=== PATIENT | male | born 1960 | race Caucasian/White ===

== ENCOUNTER → 2019-01-05 10:23 | Outpatient (CLI) | payer OTHER, SELFPAY ==
--- NOTE | 2019-01-05 10:30 | RAD_ITS ---
STUDY: X-RAY - LEFT ANKLE REASON FOR EXAM: Male, 58 years old. Increased pain. TECHNIQUE: 3 view(s) of the ankle. COMPARISON: None. FINDINGS: Normal visualized distal tibia. There is mild deformity of the tip of the distal fibula with well-corticated lucency of the tip of the lateral malleolus which may indicate sequela of an old fracture with incomplete healing. Otherwise normal medial and lateral malleoli. Normal tibiotalar articulation and ankle mortise. Normal visualized talus and calcaneus. The visualized subtalar, talonavicular, calcaneocuboid and tarsal articulations are normal. There is mild soft tissue swelling surrounding the ankle and over the lateral malleolus. RAD/Ankle min 3 Views IMPRESSION: Questionable sequela of old fracture with incomplete healing of the tip of the lateral malleolus. Correlation with the previous exam and history recommended. Remainder of the exam within normal limits. Electronically Signed: Jessika Monroy MD at 1:08 EST , Service support ,
== END ==
PROVIDERS: Family Provider Family Medicine; PCP Family Medicine; Referring Provider Family Medicine; Visit Provider Family Medicine
DX: M25.572 Pain in left ankle and joints of left foot (principal)
CPT/HCPCS: 73610

== ENCOUNTER → 2020-03-24 08:16 | Outpatient (CLI) | payer OTHER, SELFPAY ==
[2020-03-24 09:14] LABS: Cholesterol 165 mg/dL (200); Glucose 99 mg/dL (74-106); High Density Lipoprotein 36 mg/dL; Triglycerides 115 mg/dL; Very Low Density Lipoprotein 23 mg/dL (5-40)
== END ==
PROVIDERS: PCP Family Medicine; Visit Provider Family Medicine
DX: Z13.220 Encounter for screening for lipoid disorders (principal); Z13.1 Encounter for screening for diabetes mellitus; Z12.5 Encounter for screening for malignant neoplasm of prostate
CPT/HCPCS: 36415; 80061; 82947; 84153; G0103

== ENCOUNTER → 2022-10-08 | Outpatient (CLI) | payer OTHER, SELFPAY ==
--- NOTE | 2022-10-08 10:05 | RAD_ITS ---
INDICATION: hand pain EXAMINATION/TECHNIQUE: X-RAY - LEFT XR Hand Min 3 Views 3 VIEWS COMPARISON: December 01, 2016 finger x-rays. FINDINGS: SOFT TISSUES: No soft tissue swelling or gas. No radiopaque foreign body. BONES/JOINTS: No acute fracture or traumatic malalignment. There is severe degenerative changes involving the second and fifth distal interphalangeal joints with pencil in cup type deformity suggesting possible inflammatory arthritis; consider psoriatic and erosive osteoarthritis. This is increased compared to prior exam. Less severe joint space loss and subchondral sclerosis involving the third and fourth distal interphalangeal joints. There is mild to moderate joint space loss involving the proximal interphalangeal joints, fingers 1 through 5. There is moderate degenerative changes of the first metacarpal phalangeal joint. Other interphalangeal joints show normal joint spacing and alignment. Periarticular erosion suggested at the base of the proximal phalanx, fifth finger. RAD/Hand Min 3 Views IMPRESSION: Advanced arthritic changes as described above with findings suggesting possible inflammatory arthritis favoring psoriatic or less likely erosive osteoarthritis. Noninflammatory (osteoarthritic) process is not excluded. Electronically Signed: Gustavo Cerda DO at 0:02 EDT ,
[2022-10-08 12:33] LABS: Absolute Lymphocyte Count 1.57 X10^3/uL (0.83-4.51); Absolute Neutrophil Count 2.4 X10^3/uL (2.0-7.7); Basophil# 0.06 X10^3/uL; Basophil% 1.2 % (0-1); Eosinophil# 0.13 X10^3/uL; Eosinophils% 2.7 % (0-5); Hematocrit 40.7 % (40-54); Lymphocyte # 1.57 X10^3/ul (0.83-4.51); Lymphocyte % 32.2 % (19-41); Mean Corp Hgb Conc 34.4 g/dL (32-36); Mean Corpuscular Hgb 31.7 pg (27.0-32.0); Mean Corpuscular Volume 92.1 fL (80-94); Mean Platelet Vol. 10.1 fl (6.2-12.0); Monocyte# 0.65 X10^3/uL; Monocyte% 13.3 % (0-10); NRBC Flagged by Analyzer 0 % (0-5); Neutrophil # 2.44 X10^3/uL (2.7-7.7); Neutrophil % 50.2 % (47-70); Platelet Count 253 K/mm3 (150-450); RBC Distribution Width CV 12.6 % (11.6-14.6); RBC Distribution Width SD 42.7 fl (35.1-43.9); Red Blood Count 4.42 M/mm3 (4.6-6.2); White Blood Count 4.9 K/mm3 (4.4-11.0)
[2022-10-08 12:41] LABS: ALB/GLOB Ratio 1.2 RATIO (0.9-2.4); AST(SGOT) 26 U/L (15-37); Alanine Aminotransfer ALT/SGPT 36 U/L (16-61); Albumin, Serum 3.9 g/dL (3.2-5.0); Alkaline Phosphatase 83 U/L (45-117); Anion Gap 5 (5-15); BUN 13 mg/dL (7-18); BUN/Creat Ratio 15.2 RATIO (10-20); Calcium,Total 8.9 mg/dL (8.5-10.1); Chloride 100 mmol/L (98-107); Cholesterol 191 mg/dL (200); Creatinine, Serum 0.86 mg/dL (0.70-1.30); EST Glomerular Filtration Rate 96 mL/min (>60); Est Glom Filt Rate - Afr Amer 116 mL/min (>60); Globulin 3.3 g/dL (2.2-4.2); Glucose 90 mg/dL (74-106); High Density Lipoprotein 50 mg/dL; Potassium 4.2 mmol/L (3.5-5.1); Protein, Total 7.2 g/dL (6.4-8.2); Rheumatoid Factor < 10.0 IU/mL (<15); Sodium Level 134 mmol/L (136-145); Triglycerides 38 mg/dL; Very Low Density Lipoprotein 8 mg/dL (5-40)
== END | disposition home or self-care (01) ==
PROVIDERS: PCP Family Medicine; Referring Provider Family Medicine; Visit Provider Family Medicine
DX: Z00.00 Encounter for general adult medical examination without abnormal findings (principal); Z13.220 Encounter for screening for lipoid disorders; Z13.1 Encounter for screening for diabetes mellitus; M25.549 Pain in joints of unspecified hand
CPT/HCPCS: 36415; 73130; 80053; 80061; 84153; 85025; 86431; G0103

== ENCOUNTER → 2022-10-20 | Outpatient (CLI) | payer OTHER, SELFPAY ==
--- NOTE | 2022-10-20 13:22 | PFT ---
INTRODUCTION: The patient is a 61-year-old male who presents for pulmonary function studies secondary to a diagnosis of shortness of breath. Respiratory therapy reported good patient effort. Bronchodilators were used during testing. INTERPRETATION: Forced expiration spirometry demonstrates the presence of a mild large airways obstructive ventilatory defect. There was a significant response to aerosolized bronchodilators. Spirograms are of good quality but do not plateau indicating slow emptying of the lungs. Body plethysmography was performed and revealed an elevated RV to 128% of predicted, indicative of underlying air trapping. Diffusing capacity by single breath CO is within normal limits. IMPRESSION: Partially reversible mild large airways obstructive ventilatory defect with associated air trapping.
== END | disposition home or self-care (01) ==
LOC: PSN 06:49
PROVIDERS: PCP Family Medicine; Visit Provider Family Medicine
DX: R06.02 Shortness of breath (principal)
CPT/HCPCS: 94060; 94726; 94729

== ENCOUNTER → 2023-03-11 | Outpatient (CLI) | payer OTHER, SELFPAY ==
--- OUTSIDE RECORDS SUMMARY | 2023-03-11 10:03 | XMS RPT_ITS | CCD ---
Author Name Unknown Address [address] [place] [id number] Organization [facility] Care Team Providers Care Welcome Wagon Host/Hostess Name Role Phone JERRY GUERRA Admitting Unavailable CHARLIEJERRY JARVIS Attending Unavailable JERRY GUERRA Primary Care Unavailable Encounters Encounter Date Encounter Type Care Provider Facility Start: 05-09-2019 End: 05-09-2019 Patient encounter procedure JERRY GUERRA [facility] Payers Date Payer Category Payer Unknown [id number] Private Health Insurance [id number] Summary Purpose Family History No Family History Records Found Advance Directives No Advanced Directives Records Found Additional Source Comments (unrecognized sect ion and content) No Status Records Found INFORMATION SOURCE (unrecogn ized section and content) FOR RECORDS PERTAINING TO PATIENTS WHO ARE OR HAVE BEEN ENROLLED IN A CHEMICAL DEPENDENCY/SUBSTANCEABUSE PROGRAM, SOME INFORMATION MAY BE OMITTED. This clinical summary was aggregated from multiple sources. Caution should be exercised in using it in the provision of clinical care. This summary normalizes information from multiple sources, and as a consequence, information in this document may materially change the coding, format and clinical context of patient data. In addition, data may be omitted in some cases. CLINICAL DECISIONS SHOULD BE BASED ON THE PRIMARY CLINICAL RECORDS. [employer] [facility]. provides no warranty or guarantee of the accuracy or completeness of information in this document.
--- NOTE | 2023-03-11 15:50 | STRESSREP ---
Stress Test Report Exercise stress test. 62-year-old man with a history of shortness of breath Stress protocol: Resting EKG demonstrates normal sinus rhythm with a rate of 61 bpm resting blood pressure is 118/74 mmHg. The patient exercised according to the regular Tim protocol for a total duration of 6 minutes and 51 seconds attaining a maximum heart rate of 144 bpm which was 91% of maximum predicted heart rate; the maximum workload was 9.6 metabolic equivalents. At rest there were no ST or T wave changes noted to suggest ischemia and at peak exercise upsloping ST changes only were noted which did not meet the criteria for ischemia. During recovery frequent premature ventricular complexes were noted which were asymptomatic no clinical angina was noted the test was terminated due to the target heart rate being achieved/fatigue. The peak blood pressure was 190/78 mmHg. Rate-pressure product was 21,400. Conclusion: Exercise stress test with no EKG criteria for ischemia at a high workload. No clinical angina noted.
== END | disposition home or self-care (01) ==
PROVIDERS: PCP Family Medicine; Referring Provider Family Medicine; Visit Provider Family Medicine
DX: R06.02 Shortness of breath (principal)
CPT/HCPCS: 93017

== ENCOUNTER → 2023-04-13 | Outpatient (CLI) | payer OTHER, SELFPAY ==
--- NOTE | 2023-04-13 08:55 | BD_ITS ---
STUDY: DUAL ENERGY X-RAY ABSORPTIOMETRY / DXA REASON FOR EXAM: Male, 62 years old. K90.0 -- CELIAC DISEASE TECHNIQUE: Bone Mineral Density (BMD) measurements of lumbar spine and bilateral hips were obtained. COMPARISON: None. FINDINGS: Lumbar Spine (L1-L4): g/cm2 (0.696) / T-score (-3.9) / Z-score (-3.2) Findings are suggestive of osteoporosis with a high fracture risk. Left Femur Total: g/cm2 (0.935) / T-score (-0.6) / Z-score (-0.2) Left Femoral Neck: g/cm2 (0.761) / T-score (-1.2) / Z-score (-0.2) Right Femur Total: g/cm2 (0.913) / T-score (-0.8) / Z-score (-0.3) Right Femoral Neck: g/cm2 (0.821) / T-score (-0.8) / Z-score (0.2) BD/Dexa Bone Density Study IMPRESSION: The patient is considered osteoporotic as outlined below according to World Dex Organization (WHO) criteria with a high fracture risk. Reference Information: The T-score is the number of standard deviations above or below the standard which is normal for young adults at their peak bone mineral density. The World Health Organization (WHO) interprets the T-scores as follows: Above -1 Normal bone density Between -1 and -2.5 Osteopenia Equal to / or below -2.5 Osteoporosis As a practical clinical guideline, osteopenia may be graded as follows: Mild -1 through -1.5 Moderate -1.6 through -2.0 Severe -2.1 through -2.4 The Z-score is the number of standard deviations above or below age-matched controls. A Z-score of less than -1.5 would be considered abnormal. References: 1. NIH Osteoporosis and Related Bone Diseases www osteo.org 2. International Society for Clinical Densitometry www iscd.org 3. National Osteoporosis Foundation www nof.org Electronically Signed: Yvon Lundberg MD at 9:50 EST ,
--- OUTSIDE RECORDS SUMMARY | 2023-04-13 09:13 | XMS RPT_ITS | CCD ---
Author Name Unknown Address [address] [place] [id number] Organization [facility] Care Team Providers Care Primary Care Pediatrician Name Role Phone JERRY GUERRA Admitting Unavailable CHARLIEJERRY JARVIS Attending Unavailable JERRY GUERRA Primary Care Unavailable Encounters Encounter Date Encounter Type Care Provider Facility Start: 05-09-2019 End: 05-09-2019 Patient encounter procedure JERRY GUERRA [facility] Payers Date Payer Category Payer Unknown [id number] Private Health Insurance [id number] Summary Purpose Family History No Family History [...] BE BASED ON THE PRIMARY CLINICAL RECORDS. [employer] [facility]. provides no warranty or guarantee of the accuracy or completeness of information in this document.
== END | disposition home or self-care (01) ==
PROVIDERS: PCP Family Medicine; Referring Provider Family Medicine; Visit Provider Family Medicine
DX: K90.0 Celiac disease (principal)
CPT/HCPCS: 77080

== ENCOUNTER → 2023-05-10 | Outpatient (CLI) | payer OTHER, SELFPAY ==
[2023-05-10 12:31] LABS: ALB/GLOB Ratio 1.1 RATIO (0.9-2.4); AST(SGOT) 29 U/L (15-37); Alanine Aminotransfer ALT/SGPT 35 U/L (16-61); Albumin, Serum 3.7 g/dL (3.2-5.0); Alkaline Phosphatase 73 U/L (45-117); Anion Gap 9 (5-15); BUN 12 mg/dL (7-18); BUN/Creat Ratio 14.6 RATIO (10-20); Chloride 103 mmol/L (98-107); Creatinine, Serum 0.82 mg/dL (0.70-1.30); EST Glomerular Filtration Rate 101 mL/min (>60); Est Glom Filt Rate - Afr Amer 122 mL/min (>60); Globulin 3.4 g/dL (2.2-4.2); Glucose 102 mg/dL (74-106); Potassium 4.3 mmol/L (3.5-5.1); Protein, Total 7.1 g/dL (6.4-8.2); Sodium Level 140 mmol/L (136-145)
[2023-05-10 12:35] LABS: Vitamin D,25 Hydroxy 37.7 ng/mL
== END | disposition home or self-care (01) ==
LOC: MFPLAB 10:18
PROVIDERS: PCP Family Medicine; Visit Provider Family Medicine
DX: M81.0 Age-related osteoporosis without current pathological fracture (principal)
CPT/HCPCS: 36415; 80053; 82306

== ENCOUNTER → 2024-04-24 | Outpatient (CLI) | payer OTHER, SELFPAY ==
[2024-04-24 12:28] LABS: Absolute Lymphocyte Count 1.86 X10^3/uL (0.83-4.51); Absolute Neutrophil Count 2.8 X10^3/uL (2.0-7.7); Basophil# 0.06 X10^3/uL; Basophil% 1.1 % (0-1); Eosinophil# 0.12 X10^3/uL; Eosinophils% 2.2 % (0-5); Hematocrit 42.2 % (40-54); Hemoglobin 14.6 g/dL (13.0-16.5); Lymphocyte # 1.86 X10^3/ul (0.83-4.51); Lymphocyte % 34.1 % (19-41); Mean Corp Hgb Conc 34.6 g/dL (32-36); Mean Corpuscular Volume 89.6 fL (80-94); Mean Platelet Vol. 10.1 fl (6.2-12.0); Monocyte# 0.64 X10^3/uL; Monocyte% 11.7 % (0-10); NRBC Flagged by Analyzer 0 % (0-5); Neutrophil # 2.76 X10^3/uL (2.7-7.7); Neutrophil % 50.5 % (47-70); Platelet Count 295 K/mm3 (150-450); RBC Distribution Width CV 12.7 % (11.6-14.6); RBC Distribution Width SD 42.3 fl (35.1-43.9); Red Blood Count 4.71 M/mm3 (4.6-6.2); White Blood Count 5.5 K/mm3 (4.4-11.0)
[2024-04-24 13:12] LABS: ALB/GLOB Ratio 1.5 RATIO (0.9-2.4); AST(SGOT) 32 U/L (<=37); Alanine Aminotransfer ALT/SGPT 37 U/L (<=46); Albumin, Serum 4.4 g/dL (3.4-4.8); Alkaline Phosphatase 58 U/L (40-129); Anion Gap 12 (5-15); BUN 13 mg/dL (4-19); BUN/Creat Ratio 15.4 RATIO (10-20); Calcium,Total 9.2 mg/dL (7.6-11.0); Carbon Dioxide 20.9 mmol/L (21.0-32.0); Chloride 102 mmol/L (98-108); Creatinine, Serum 0.84 mg/dL (0.70-1.20); EST Glomerular Filtration Rate 97 (>60); Globulin 2.9 g/dL (2.2-4.2); Glucose 99 mg/dL (70-99); PSA,Total - Annual Screen 1.58 ng/mL (0.02-4.00); Potassium 4.3 mmol/L (3.3-5.1); Protein, Total 7.3 g/dL (5.9-8.4); Sodium Level 135 mmol/L (133-145); Total Bilirubin 0.75 mg/dL (0.00-1.30)
[2024-04-24 14:19] LABS: Cholesterol 174 mg/dL (<=200); High Density Lipoprotein 42 mg/dL; Low Density Lipoprotein Calc. 118 mg/dL; Triglycerides 70 mg/dL; Very Low Density Lipoprotein 14 mg/dL (5-40); cholesterol:hdl ratio screen 4.16
== END | disposition home or self-care (01) ==
LOC: MTLAB 09:22
PROVIDERS: PCP Family Medicine; Referring Provider Family Medicine; Visit Provider Family Medicine
DX: M19.049 Primary osteoarthritis, unspecified hand (principal); Z12.5 Encounter for screening for malignant neoplasm of prostate; Z13.1 Encounter for screening for diabetes mellitus; E78.5 Hyperlipidemia, unspecified
CPT/HCPCS: 36415; 80053; 80061; 84153; 85025; G0103

== ENCOUNTER → 2024-05-28 | Outpatient (CLI) | payer OTHER, SELFPAY ==
[2024-05-28 11:03] LABS: Absolute Lymphocyte Count 2.05 X10^3/uL (0.83-4.51); Absolute Neutrophil Count 2.9 X10^3/uL (2.0-7.7); Basophil# 0.08 X10^3/uL; Basophil% 1.3 % (0-1); Eosinophil# 0.15 X10^3/uL; Eosinophils% 2.5 % (0-5); Hematocrit 41.3 % (40-54); Hemoglobin 13.6 g/dL (13.0-16.5); Lymphocyte # 2.05 X10^3/ul (0.83-4.51); Lymphocyte % 34.5 % (19-41); Mean Corp Hgb Conc 32.9 g/dL (32-36); Mean Corpuscular Hgb 30.5 pg (27.0-32.0); Mean Corpuscular Volume 92.6 fL (80-94); Mean Platelet Vol. 10.6 fl (6.2-12.0); Monocyte% 11.8 % (0-10); NRBC Flagged by Analyzer 0 % (0-5); Neutrophil # 2.94 X10^3/uL (2.7-7.7); Neutrophil % 49.4 % (47-70); Platelet Count 256 K/mm3 (150-450); Red Blood Count 4.46 M/mm3 (4.6-6.2)
[2024-05-28 11:23] LABS: Erythrocyte Sedimentation Rate 1 mm/hr (0-20)
[2024-05-28 11:50] LABS: ALB/GLOB Ratio 1.7 RATIO (0.9-2.4); AST(SGOT) 33 U/L (<=37); Alanine Aminotransfer ALT/SGPT 35 U/L (<=46); Albumin, Serum 4.3 g/dL (3.4-4.8); Alkaline Phosphatase 80 U/L (40-129); Anion Gap 9 (5-15); BUN 15 mg/dL (4-19); BUN/Creat Ratio 17.9 RATIO (10-20); Calcium,Total 9.2 mg/dL (7.6-11.0); Carbon Dioxide 26.4 mmol/L (21.0-32.0); Chloride 102 mmol/L (98-108); Creatinine, Serum 0.85 mg/dL (0.70-1.20); EST Glomerular Filtration Rate 97 (>60); Globulin 2.5 g/dL (2.2-4.2); Glucose 99 mg/dL (70-99); Hepatitis B Surface Antibody Nonreactive; Hepatitis B Surface Antigen Nonreactive (Nonreactive); Hepatitis C Antibody Nonreactive (Nonreactive); Potassium 4.4 mmol/L (3.3-5.1); Protein, Total 6.9 g/dL (5.9-8.4); Sodium Level 138 mmol/L (133-145); Total Bilirubin 0.36 mg/dL (0.00-1.30)
[2024-05-28 11:51] LABS: CRP < 3.00 mg/L (0.0-3.0); Rheumatoid Factor 15.1 IU/mL (<15)
[2024-05-29 11:08] LABS: ANTINUCLEAR ANTIBODIES DIRECT Negative (Negative)
[2024-05-29 12:08] LABS: CCP IgG Antibodies 4 units (0-19)
== END | disposition home or self-care (01) ==
LOC: MTLAB 08:48
PROVIDERS: PCP Family Medicine; Referring Provider Internal Medicine Rheumatology; Visit Provider Internal Medicine Rheumatology
DX: M06.4 Inflammatory polyarthropathy (principal); M19.041 Primary osteoarthritis, right hand
CPT/HCPCS: 36415; 80053; 85025; 85652; 86038; 86140; 86200; 86431; 86706; 86803; 87340

== ENCOUNTER → 2024-08-21 | Outpatient (CLI) | payer OTHER, SELFPAY ==
--- OUTSIDE RECORDS SUMMARY | 2024-08-21 07:23 | XMS RPT_ITS | CCD ---
Author Organization [facility] Care Team Providers Care Aircraft Part Assembler Name Role Phone JERRY GUERRA Admitting Unavailable JERRY GUERRA Attending Unavailable JERRY GUERRA Primary Care Unavailable MD Mian Starr Primary Care Provider MD Mian Starr Other Provider Dr. Hector Matta Attending Provider 1([facility])[phone] MD Mian Starr Primary Care Provider 1([facility])[phone] MD Mian Starr Referring Provider 1([facility])[phone] MD Mian Starr Other Provider Dr. Julián Jacobs Attending Provider 1([facility])[phone] MD Mian Starr Primary Care Provider 1([facility])[phone] MD Mian Starr Referring Provider 1([facility])[phone] MD Mian Starr Other Provider Dr. Julián Jacobs Attending Provider 1([facility])[phone] Mian Satrr MD Primary Care Provider 1([facility])[phone] Mian Starr MD Attending Provider 1([facility])[phone] Mian Starr MD Referring Provider 1([facility])[phone] Rhoda Tripathi MD Attending Provider Dr. Rhoda Tripathi MD Referring Provider Mian Starr Primary Care Unavailable Rhoda Tripathi Referring Unavailable Rhoda Tripathi Attending Unavailable Mian Starr Referring Unavailable Mian Starr Attending Unavailable Mian Starr Primary Care Unavailable Problems Problem Classification Problem Date Documented Da te Episodic/Chronic Osteoarthritis (1 source) Primary osteoarthritis, unspecified hand; Translations: [Primary osteoarthritis, unspecified hand] Onset: 05-04-2024 Chronic Rheumatoid arthritis and related disease (1 source) Inflammatory polyarthropathy; Translations: [Inflammatory polyarthropathy] Onset: 06-01-2024 Chronic Results Test Name Value Interpretation Reference Range Facil ity ANTINUCLEAR ANTIBODIES DIREC Ton 05-29-2024 RIVAS,DIRECT Negative Normal Negative [facility] Comment on above: Result Comment: Perf ormed at: [facility] [id number] On Site Nurse: Daniel Sánchez PhD, Phone: [phone] Performed By: #### L 100.0100, L500.4050 #### [facility] [address] [facility] [place], [address] CCP IgG Antibodieson 025 CCP IgG Ab. 4 units Normal 0-19 [facility] Comment on above: Result Comment: Nega tive <20 Weak positive 20 - 39 Moderate positive 40 - 59 Strong positive >59 Performed at: [facility] [employer] [id number] On Site Nurse: Daniel Sánchez PhD, Phone: [phone] Performed By: #### L 100.0100, L560.4053 #### [facility] [address] [place] [address], [address] RIVAS serumOrdered By: Rhoda ruiz on 05-28-2024 Anti-Nuclear Antibody Screen Negative Negative [facility] Comment on above: Performed at: [facility] [address] [id number] Director: Daniel Sánchez PhD, Phone: [phone] Absolute neutrophil countOrd ered By: Rhoda Tripathi on 05-28-2024 Neutrophils (Bld) [#/Vol] 2.9 10*3/uL 2.0-7.7 [facility] Anion gap in Serum or Plasma Ordered By: Rhoda Tripathi on 05-28-2024 Anion gap [Moles/Vol] 9 mmol/L 5-15 [facility] BUN/creatinine ratioOrdered By: Rhoda Tripathi on 05-28-2024 Urea nitrogen/Creatinine [Mass ratio] 17.9 mg/mg 10-20 [facility] Basophil percentageOrdered B y: Rhoda Preciadoyas on 05-28-2024 Basophils/100 WBC (Bld) 1.3 % High 0-1 [facility] Bilirubin, totalOrdered By: Rhoda Preciadoyas on 05-28-2024 Bilirubin [Mass/Vol] 0.36 mg/dL 0.00-1.30 [facility] CBC W/Diff, Automatedon Absolute Lymph 2.05 X10 3/uL Normal 0.83-4.51 [facility] Comment on above: Performed By: #### L 3890.6301, L3100.5475, L500.4050, L4600.0100, L3890.6102, L101.9900, L501.6710, L505.7010, L3890.6202, L100.0100 #### [facility] [address] [place], [place], [phone] (009) Absolute Neut 2.9 X10 3/uL Normal 2.0-7.7 [facility] Comment on above: Performed By: #### L 3890.6301, L3100.5475, L500.4050, L4600.0100, L3890.6102, L101.9900, L501.6710, L505.7010, L3890.6202, L100.0100 #### [facility] [address] [place], [place], [phone] (480) Basophils/100 WBC (Bld) 1.3 % High 0-1 [facility] Comment on above: Performed By: #### L 3890.6301, L3100.5475, L500.4050, L4600.0100, L3890.6102, L101.9900, L501.6710, L505.7010, L3890.6202, L100.0100 #### [facility] [address] [place], [address] Eosinophils/100 WBC (Bld) 2.5 % Normal 0-5 [facility] Comment on above: Performed By: #### L 3890.6301, L3100.5475, L500.4050, L4600.0100, L3890.6102, L101.9900, L501.6710, L505.7010, L3890.6202, L100.0100 #### [facility] [address] [place], [address] (878) Erythrocyte distribution width (RBC) [Ratio] 13.0 % Normal 11.6-14.6 [facility] Comment on above: Performed By: #### L 3890.6301, L3100.5475, L500.4050, L4600.0100, L3890.6102, L101.9900, L501.6710, L505.7010, L3890.6202, L100.0100 #### [facility] [address] [place], [address] (370) Hematocrit (Bld) [Volume fraction] 41.3 % Normal 40-54 [facility] Comment on above: Performed By: #### L 3890.6301, L3100.5475, L500.4050, L4600.0100, L3890.6102, L101.9900, L501.6710, L505.7010, L3890.6202, L100.0100 #### [facility] [address] [place], [address] (364) Hemoglobin (Bld) [Mass/Vol] 13.6 g/dL Normal 13.0-16.5 [facility] Comment on above: Performed By: #### L 3890.6301, L3100.5475, L500.4050, L4600.0100, L3890.6102, L101.9900, L501.6710, L505.7010, L3890.6202, L100.0100 #### [facility] [address] [place], [address] IG% 0.500 Normal 0.0-0.9 [facility] Comment on above: Result Comment: IG% - Immature Granulocytes (promyelocytes, myelocytes and metamyelocytes) > 1% indicates that a LEFT SHIFT is Present. Performed By: #### L 3890.6301, L3100.5475, L500.4050, L4600.0100, L3890.6102, L101.9900, L501.6710, L505.7010, L3890.6202, L100.0100 #### [facility] [address] [place], [address] Lymphocytes/100 WBC (Bld) 34.5 % Normal 19-41 [facility] Comment on above: Performed By: #### L 3890.6301, L3100.5475, L500.4050, L4600.0100, L3890.6102, L101.9900, L501.6710, L505.7010, L3890.6202, L100.0100 #### [facility] [address] [place], [address] MCH (RBC) [Entitic mass] 30.5 pg Normal 27.0-32.0 [facility] Comment on above: Performed By: #### L 3890.6301, L3100.5475, L500.4050, L4600.0100, L3890.6102, L101.9900, L501.6710, L505.7010, L3890.6202, L100.0100 #### [facility] [address] [place], [address] MCHC (RBC) [Mass/Vol] 32.9 g/dL Normal 32-36 [facility] Comment on above: Performed By: #### L 3890.6301, L3100.5475, L500.4050, L4600.0100, L3890.6102, L101.9900, L501.6710, L505.7010, L3890.6202, L100.0100 #### [facility] [address] [place], [address] MCV (RBC) [Entitic vol] 92.6 fL Normal 80-94 [facility] Comment on above: Performed By: #### L 3890.6301, L3100.5475, L500.4050, L4600.0100, L3890.6102, L101.9900, L501.6710, L505.7010, L3890.6202, L100.0100 #### [facility] [address] [place], [address] Monocytes/100 WBC (Bld) 11.8 % High 0-10 [facility] Comment on above: Performed By: #### L 3890.6301, L3100.5475, L500.4050, L4600.0100, L3890.6102, L101.9900, L501.6710, L505.7010, L3890.6202, L100.0100 #### [facility] [address] [place], [address] Neutrophils/100 WBC (Bld) 49.4 % Normal 47-70 [facility] Comment on above: Performed By: #### L 3890.6301, L3100.5475, L500.4050, L4600.0100, L3890.6102, L101.9900, L501.6710, L505.7010, L3890.6202, L100.0100 #### [facility] [address] [place], [address] Nucleated RBC (Bld) [#/Vol] 0 10*3/uL Normal 0-5 [facility] Comment on above: Performed By: #### L 3890.6301, L3100.5475, L500.4050, L4600.0100, L3890.6102, L101.9900, L501.6710, L505.7010, L3890.6202, L100.0100 #### [facility] [address] [place], [address] Platelet mean volume (Bld) [Entitic vol] 10.6 fL Normal 6.2-12.0 [facility] Comment on above: Performed By: #### L 3890.6301, L3100.5475, L500.4050, L4600.0100, L3890.6102, L101.9900, L501.6710, L505.7010, L3890.6202, L100.0100 #### [facility] [address] [place], [address] ( Platelets (Bld) [#/Vol] 256 10*3/uL Normal 150-450 [facility] Comment on above: Performed By: #### L 3890.6301, L3100.5475, L500.4050, L4600.0100, L3890.6102, L101.9900, L501.6710, L505.7010, L3890.6202, L100.0100 #### [facility] [address] [place], [address] (609) RBC (Bld) [#/Vol] 4.46 10*6/uL Low 4.6-6.2 [facility] Comment on above: Performed By: #### L 3890.6301, L3100.5475, L500.4050, L4600.0100, L3890.6102, L101.9900, L501.6710, L505.7010, L3890.6202, L100.0100 #### [facility] [address] [place], [address] RDW SD 44.0 fl High 35.1-43.9 [facility] Comment on above: Performed By: #### L 3890.6301, L3100.5475, L500.4050, L4600.0100, L3890.6102, L101.9900, L501.6710, L505.7010, L3890.6202, L100.0100 #### [facility] [address] [place], [address] WBC (Bld) [#/Vol] 6.0 10*3/uL Normal 4.4-11.0 [facility] Comment on above: Performed By: #### L 3890.6301, L3100.5475, L500.4050, L4600.0100, L3890.6102, L101.9900, L501.6710, L505.7010, L3890.6202, L100.0100 #### [facility] [address] [place], [place], [id number] CRPon 05-28-2024 C-REACTIVE PROT < 3.00 Normal 0.0-3.0 [facility] Comment on above: Performed By: #### L 100.0100, L500.4050 #### [facility] [address] [place], [address] CRP [Mass/Vol]Ordered By: Jamison Tripathi on 05-28-2024 C-Reactive Protein Extended Range < 3.00 mg/L 0.0-3.0 [facility] Carbon dioxide, total [Moles /volume] in Central venous bloodOrdered By: Rhoda Tripathi on 05-28-2024 CO2 [Moles/Vol] 26.4 mmol/L 21.0-32.0 [facility] Chloride assayOrdered By: Jamison Tripathi on 05-28-2024 Chloride [Moles/Vol] 102 mmol/L 98-108 [facility] Comprehensive Metabolic Prof ilon 05-28-2024 Albumin [Mass/Vol] 4.3 g/dL Normal 3.4-4.8 [facility] Comment on above: Performed By: #### L 3890.6301, L3100.5475, L500.4050, L4600.0100, L3890.6102, L101.9900, L501.6710, L505.7010, L3890.6202, L100.0100 #### [facility] [address] [place], [address] Albumin/Globulin [Mass ratio] 1.7 {ratio} Normal 0.9-2.4 [facility] Comment on above: Performed By: #### L 3890.6301, L3100.5475, L500.4050, L4600.0100, L3890.6102, L101.9900, L501.6710, L505.7010, L3890.6202, L100.0100 #### [facility] [address] [place], [address] ALK PHOS 80 U/L Normal 40-129 [facility] Comment on above: Performed By: #### L 3890.6301, L3100.5475, L500.4050, L4600.0100, L3890.6102, L101.9900, L501.6710, L505.7010, L3890.6202, L100.0100 #### [facility] [address] [place], [address] ALT [Catalytic activity/Vol] 35 U/L Normal <=46 [facility] Comment on above: Performed By: #### L 3890.6301, L3100.5475, L500.4050, L4600.0100, L3890.6102, L101.9900, L501.6710, L505.7010, L3890.6202, L100.0100 #### [facility] [address] [place], [address] AST [Catalytic activity/Vol] 33 U/L Normal <=37 [facility] Comment on above: Performed By: #### L 3890.6301, L3100.5475, L500.4050, L4600.0100, L3890.6102, L101.9900, L501.6710, L505.7010, L3890.6202, L100.0100 #### [facility] [address] [place], [place], [id number] Bilirubin [Mass/Vol] 0.36 mg/dL Normal 0.00-1.30 [facility] Comment on above: Performed By: #### L 3890.6301, L3100.5475, L500.4050, L4600.0100, L3890.6102, L101.9900, L501.6710, L505.7010, L3890.6202, L100.0100 #### [facility] [address] [place], [place], [id number] BUN/CRE 17.9 RATIO Normal 10-20 [facility] Comment on above: Performed By: #### L 3890.6301, L3100.5475, L500.4050, L4600.0100, L3890.6102, L101.9900, L501.6710, L505.7010, L3890.6202, L100.0100 #### [facility] [address] [place], [place], [id number] Calcium [Mass/Vol] 9.2 mg/dL Normal 7.6-11.0 [facility] Comment on above: Performed By: #### L 3890.6301, L3100.5475, L500.4050, L4600.0100, L3890.6102, L101.9900, L501.6710, L505.7010, L3890.6202, L100.0100 #### [facility] [address] [place], [place], [address] Chloride [Moles/Vol] 102 mmol/L Normal 98-108 [facility] Comment on above: Performed By: #### L 3890.6301, L3100.5475, L500.4050, L4600.0100, L3890.6102, L101.9900, L501.6710, L505.7010, L3890.6202, L100.0100 #### [facility] [address] [place], [address] CO2 [Moles/Vol] 26.4 mmol/L Normal 21.0-32.0 [facility] Comment on above: Performed By: #### L 3890.6301, L3100.5475, L500.4050, L4600.0100, L3890.6102, L101.9900, L501.6710, L505.7010, L3890.6202, L100.0100 #### [facility] [address] [place], [place], [phone] (246) Creatinine [Mass/Vol] 0.85 mg/dL Normal 0.70-1.20 [facility] Comment on above: Performed By: #### L 3890.6301, L3100.5475, L500.4050, L4600.0100, L3890.6102, L101.9900, L501.6710, L505.7010, L3890.6202, L100.0100 #### [facility] [address] [place], [place], [phone] (349) GAP 9 Normal 5-15 [facility] Comment on above: Performed By: #### L 3890.6301, L3100.5475, L500.4050, L4600.0100, L3890.6102, L101.9900, L501.6710, L505.7010, L3890.6202, L100.0100 #### [facility] [address] [place], [place], [phone] (013) GFR/1.73 sq M.predicted among non-blacks MDRD (S/P/Bld) [Vol rate/Area] 97 mL/min/{1.73_m2} Normal >60 [facility] Comment on above: Result Comment: mL/m in/1.73m2 CKD-EPI Creatinine Equation (2020) Performed By: #### L 3890.6301, L3100.5475, L500.4050, L4600.0100, L3890.6102, L101.9900, L501.6710, L505.7010, L3890.6202, L100.0100 #### [facility] [address] [place], [address] Globulin (S) [Mass/Vol] 2.5 g/dL Normal 2.2-4.2 [facility] Comment on above: Performed By: #### L 3890.6301, L3100.5475, L500.4050, L4600.0100, L3890.6102, L101.9900, L501.6710, L505.7010, L3890.6202, L100.0100 #### [facility] [address] [place], [address] Glucose [Mass/Vol] 99 mg/dL Normal 70-99 [facility] Comment on above: Performed By: #### L 3890.6301, L3100.5475, L500.4050, L4600.0100, L3890.6102, L101.9900, L501.6710, L505.7010, L3890.6202, L100.0100 #### [facility] [address] [place], [address] Potassium [Moles/Vol] 4.4 mmol/L Normal 3.3-5.1 [facility] Comment on above: Performed By: #### L 3890.6301, L3100.5475, L500.4050, L4600.0100, L3890.6102, L101.9900, L501.6710, L505.7010, L3890.6202, L100.0100 #### [facility] [address] [place], [address] Sodium [Moles/Vol] 138 mmol/L Normal 133-145 [facility] Comment on above: Performed By: #### L 3890.6301, L3100.5475, L500.4050, L4600.0100, L3890.6102, L101.9900, L501.6710, L505.7010, L3890.6202, L100.0100 #### [facility] [address] [facility] [place], [address] T PROT 6.9 g/dL Normal 5.9-8.4 [facility] Comment on above: Performed By: #### L 3890.6301, L3100.5475, L500.4050, L4600.0100, L3890.6102, L101.9900, L501.6710, L505.7010, L3890.6202, L100.0100 #### [facility] [address] [facility] [place], [address] Urea nitrogen [Mass/Vol] 15 mg/dL Normal 4-19 [facility] Comment on above: Performed By: #### L 3890.6301, L3100.5475, L500.4050, L4600.0100, L3890.6102, L101.9900, L501.6710, L505.7010, L3890.6202, L100.0100 #### [facility] [address] [facility] [place], [address] Cyclic citrullinated peptide IgG QnOrdered By: Rhoda Tripathi on 05-28-2024 Cyclic Citrullinated Peptide IgG Ab 4 units 0-19 [facility] Comment on above: Negative <20 Weak po sitive 20 - 39 Moderate positive 40 - 59 Strong positive >59Performed at: - [facility] [id number] Director: Daniel Sánchez PhD, Phone: [phone] Eosinophil percentageOrdered By: Rhoda Tripathi on 05-28-2024 Eosinophils/100 WBC (Bld) 2.5 % 0-5 [facility] Erythrocyte Sed Rateon 05-28 SED RATE 1 mm/hr Normal 0-20 [facility] Comment on above: Performed By: #### L 3890.6301, L3100.5475, L500.4050, L4600.0100, L3890.6102, L101.9900, L501.6710, L505.7010, L3890.6202, L100.0100 #### [facility] [place], [address] Erythrocyte distribution wid th (RBC) [Ratio]Ordered By: Rhoda Tripathi on 05-28-2024 Erythrocyte distribution width (RBC) [Entitic vol] 44.0 fL High 35.1-43.9 [facility] Erythrocyte distribution wid th ratioOrdered By: Rhoda Tripathi on 05-28-2024 Erythrocyte distribution width (RBC) [Ratio] 13.0 % 11.6-14.6 [facility] Erythrocyte sedimentation ra teOrdered By: Rhoda Tripathi on 05-28-2024 ESR (Bld) [Velocity] 1 mm/h 0-20 [facility] GFR/1.73 sq M.predicted arden g non-blacks MDRD (S/P/Bld) [Vol rate/Area]Ordered By: Rhoda Tripathi on 05-28-2024 Estimated GFR (MDRD) Non-Af Amer 97 >60 [facility] Comment on above: mL/min/1.73m2 CKD-EP I Creatinine Equation (2020) HBV surface Ab Ql (S)Ordered By: Rhoda Tripathi on 05-28-2024 Hepatitis B Surface Antibody Non-Reactive [facility] Comment on above: <8.5 mIU/mL: Non-Gay ctive8.5<= x <11.5 mIU/mL: Indeterminate>=11.5 mIU/mL: Reactive Non Reactive: Inconsistent with immunity less than <10 mIU/mL Reactive: Consistent with immunity greater than or equal to 10 mIU/mL HBV surface Ag Ql (S)Ordered By: Rhoda Tripathi on 05-28-2024 Hepatitis B Surface Antigen Non-Reactive Nonreactive [facility] Comment on above: Reactive: Presumptiv e evidence of HBV. Repeatedly reactive samples must be confirmed using a neutralization test ([facility] HBsAg Confirmatory Test)Non-Reactive: HBsAg not detected; does not exclude the possibility of exposure to HBV Hematocrit Auto (Bld) [Volum e fraction]Ordered By: Rhoda Tripathi on 05-28-2024 Hematocrit (Bld) [Volume fraction] 41.3 % 40-54 [facility] Hemoglobin measurementOrdere d By: Rhoda Tripathi on 05-28-2024 Hemoglobin (Bld) [Mass/Vol] 13.6 g/dL 13.0-16.5 [facility] Hepatitis B Surface Antibody on 05-28-2024 HEP B Surf Ab Non-Reactive Normal [facility] Comment on above: Result Comment: <8.5 mIU/mL: Non-Reactive 8.5<= x <11.5 mIU/mL: Indeterminate >=11.5 mIU/mL: Reactive Non Reactive: Inconsistent with immunity less than <10 mIU/mL Reactive: Consistent with immunity greater than or equal to 10 mIU/mL Performed By: #### L 3890.6301, L3100.5475, L500.4050, L4600.0100, L3890.6102, L101.9900, L501.6710, L505.7010, L3890.6202, L100.0100 #### [facility] [address] [place], [address] Hepatitis C Antibodyon 05-28 Hepatitis C Ab Non-Reactive Normal Nonreactive [facility] Comment on above: Result Comment: Reac tive: Presumptive evidence of antibodies to HCV. Follow CDC recommendations for supplemental testing. Non-Reactive: Antibodies to HCV were not detected; does not exclude the possibility of exposure to HCV Reactive Results are presumptive evidence of antibodies to HCV. Follow CDC recommendations for supplemental testing. Order confirmation testing: HCV Quant by PCR testing - HCVPCR #[id number] Non Reactive: < 0.8 Equivocal: >/= 0.8 to < 1.0 Reactive: >/= 1.0 The CDC requires that a reactive/equivocal HCV antibody result be sent out for confirmation. HCV Quant by PCR testing. Performed By: #### L 3890.6301, L3100.5475, L500.4050, L4600.0100, L3890.6102, L101.9900, L501.6710, L505.7010, L3890.6202, L100.0100 #### [facility] [address] [place], [place], [id number] Hepatitis C antibodyOrdered By: Rhoda Tripathi on 05-28-2024 Hepatitis C Antibody Non-Reactive Nonreactive [facility] Comment on above: Reactive: Presumptiv e evidence of antibodies to HCV. Follow CDC recommendations for supplemental testing.Non-Reactive: Antibodies to HCV were not detected; does not exclude the possibility of exposure to HCVReactive Results are presumptive evidence of antibodies to HCV. Follow CDC recommendations for supplemental testing.Order confirmation testing: HCV Quant by PCR testing - HCVPCR #[id number] Non Reactive: < 0.8 Equivocal: >/= 0.8 to < 1.0 Reactive: >/= 1.0The [facility] requires that a reactive/equivocal HCV antibody result be sent out for confirmation. HCV Quant by PCR testing. Immature granulocytes/100 WB C Auto (Bld)Ordered By: Rhoda Tripathi on 05-28-2024 Immature granulocytes/100 WBC (Bld) 0.500 % 0.0-0.9 [facility] Comment on above: IG% - Immature Granu locytes (promyelocytes, myelocytes and metamyelocytes) > 1% indicates that a LEFT SHIFT is Present. L3890.6102on 05-28-2024 HEP B Surf Ag Non-Reactive Normal Nonreactive [facility] Comment on above: Result Comment: Reac tive: Presumptive evidence of HBV. Repeatedly reactive samples must be confirmed using a neutralization test ([facility] HBsAg Confirmatory Test) Non-Reactive: HBsAg not detected; does not exclude the possibility of exposure to HBV Performed By: #### L 3890.6301, L3100.5475, L500.4050, L4600.0100, L3890.6102, L101.9900, L501.6710, L505.7010, L3890.6202, L100.0100 #### [facility] [address] [place], [place], [id number] Laboratory - Chemistry and C hemistry - challengeOrdered By: Rhoda Tripathi on 05-28-2024 AST [Catalytic activity/Vol] 33 U/L <38 [facility] Lymphocytes Auto (Unsp spec) [#/Vol]Ordered By: Rhoda Tripathi on 05-28-2024 Lymphocytes (Bld) [#/Vol] 2.05 10*3/uL 0.83-4.51 [facility] Lymphocytes/100 WBC Auto (Un sp spec)Ordered By: Rhoda Tripathi on 05-28-2024 Lymphocytes/100 WBC (Bld) 34.5 % 19-41 [facility] MCV (mean corpuscular volume ) determinationOrdered By: Rhoda Tripathi on 05-28-2024 MCV (RBC) [Entitic vol] 92.6 fL 80-94 [facility] Mean corpuscular hemoglobin (MCH) determinationOrdered By: Rhoda Tripathi on 05-28-2024 MCH (RBC) [Entitic mass] 30.5 pg 27.0-32.0 [facility] Mean corpuscular hemoglobin concentration (MCHC) determinationOrdered By: Rhoda Tripathi on 05-28-2024 MCHC (RBC) [Mass/Vol] 32.9 g/dL 32-36 [facility] Mean platelet volume determi nationOrdered By: Rhoda Trpiathi on 05-28-2024 Platelet mean volume (Bld) [Entitic vol] 10.6 fL 6.2-12.0 [facility] Monocyte percentageOrdered B y: Rhoda Tripathi on 05-28-2024 Monocytes/100 WBC (Bld) 11.8 % High 0-10 [facility] Neutrophil percentageOrdered By: Rhoda Tripathi on 05-28-2024 Neutrophils/100 WBC (Bld) 49.4 % 47-70 [facility] Nucleated red blood cell per centageOrdered By: Rhoda Tripathi on 05-28-2024 Nucleated RBC/100 WBC (Bld) [Ratio] 0 % 0-5 [facility] Platelet countOrdered By: Jamison Tripathi on 05-28-2024 Platelets (Bld) [#/Vol] 256 10*3/uL 150-450 [facility] Potassium (Unsp spec) [Mass/ Vol]Ordered By: Rhoda Tripathi on 05-28-2024 Potassium [Moles/Vol] 4.4 mmol/L 3.3-5.1 [facility] RBC Auto (Bld) [#/Vol]Ordere d By: Rhoda Tripathi on 05-28-2024 RBC (Bld) [#/Vol] 4.46 10*6/uL Low 4.6-6.2 [facility] Rheumatoid Factoron 05-29-19 25 RHEUMATOID FAC 15.1 IU/mL High <15 [facility] Comment on above: Performed By: #### L 100.0100, L500.4050 #### [facility] [address] [place], [place], [id number] Rheumatoid factor Ql (S)Orde red By: Rhoda Tripathi on 05-28-2024 Rheumatoid Factor 15.1 IU/mL High <15 [facility] Serum creatinine measurement (mass/volume)Ordered By: Rhoda Tripathi on 05-28-2024 Creatinine [Mass/Vol] 0.85 mg/dL 0.70-1.20 [facility] Serum globulin measurementOr dered By: Rhoda Tripathi on 05-28-2024 Globulin (S) [Mass/Vol] 2.5 g/dL 2.2-4.2 [facility] Serum glucose measurement (m ass/volume)Ordered By: Rhoda Tripathi on 05-28-2024 Glucose [Mass/Vol] 99 mg/dL 70-99 [facility] Serum or plasma alanine garcia otransferase (ALT) measurementOrdered By: Rhoda Tripathi on 05-28-2024 ALT [Catalytic activity/Vol] 35 U/L <47 [facility] Serum or plasma albumin jorge urement (mass/volume)Ordered By: Rhoda Tripathi on 05-28-2024 Albumin [Mass/Vol] 4.3 g/dL 3.4-4.8 [facility] Serum or plasma albumin/glob ulin mass ratioOrdered By: Rhoda Tripathi on 05-28-2024 Albumin/Globulin [Mass ratio] 1.7 {ratio} 0.9-2.4 [facility] Serum or plasma alkaline edgard sphatase measurementOrdered By: Rhoda Tripathi on 05-28-2024 ALP [Catalytic activity/Vol] 80 U/L 40-129 [facility] Serum or plasma calcium jorge urement (mass/volume)Ordered By: Rhoda Tripathi on 05-28-2024 Calcium [Mass/Vol] 9.2 mg/dL 7.6-11.0 [facility] Serum or plasma urea nitroge n measurement (mass/volume)Ordered By: Rhoda Tripathi on 05-28-2024 Urea nitrogen [Mass/Vol] 15 mg/dL 4-19 [facility] Sodium levelOrdered By: Patel Tripathi on 05-28-2024 Sodium [Moles/Vol] 138 mmol/L 133-145 [facility] Total proteinOrdered By: Randi Tripathi on 05-28-2024 Protein [Mass/Vol] 6.9 g/dL 5.9-8.4 [facility] White blood cell (WBC) count Ordered By: Rhoda Tripathi on 05-28-2024 WBC (Bld) [#/Vol] 6.0 10*3/uL 4.4-11.0 [facility] Absolute neutrophil countOrd ered By: Mian Starr on 04-24-2024 Neutrophils (Bld) [#/Vol] 2.8 10*3/uL 2.0-7.7 [facility] Anion gap in Serum or Plasma Ordered By: Mian Starr on 04-24-2024 Anion gap [Moles/Vol] 12 mmol/L 5-15 [facility] BUN/creatinine ratioOrdered By: Mian Starr on 04-24-2024 Urea nitrogen/Creatinine [Mass ratio] 15.4 mg/mg 10-20 [facility] Basophil percentageOrdered B y: Mian Starr on 04-24-2024 Basophils/100 WBC (Bld) 1.1 % High 0-1 [facility] Bilirubin, totalOrdered By: Mian Starr on 04-24-2024 Bilirubin [Mass/Vol] 0.75 mg/dL 0.00-1.30 [facility] CBC W/Diff, Automatedon Absolute Lymph 1.86 X10 3/uL Normal 0.83-4.51 [facility] Comment on above: Order Comment: Order Date: 10/11/23 Order Info: 0184-1 - CBCD Performed By: #### L 100.0100, L500.4050 #### [facility] [address] [place], [address] Absolute Neut 2.8 X10 3/uL Normal 2.0-7.7 [facility] Comment on above: Order Comment: Order Date: 10/11/23 Order Info: 0184-1 - CBCD Performed By: #### L 100.0100, L500.4050 #### [facility] [address] [place], [address] Basophils/100 WBC (Bld) 1.1 % High 0-1 [facility] Comment on above: Order Comment: Order Date: 10/11/23 Order Info: 0184-1 - CBCD Performed By: #### L 100.0100, L500.4050 #### [facility] [address] [place], [address] Eosinophils/100 WBC (Bld) 2.2 % Normal 0-5 [facility] Comment on above: Order Comment: Order Date: 10/11/23 Order Info: 0184-1 - CBCD Performed By: #### L 100.0100, L500.4050 #### [facility] [address] [place], [address] Erythrocyte distribution width (RBC) [Ratio] 12.7 % Normal 11.6-14.6 [facility] Comment on above: Order Comment: Order Date: 10/11/23 Order Info: 0184-1 - CBCD Performed By: #### L 100.0100, L500.4050 #### [facility] [address] [place], [address] Hematocrit (Bld) [Volume fraction] 42.2 % Normal 40-54 [facility] Comment on above: Order Comment: Order Date: 10/11/23 Order Info: 018- - CBCD Performed By: #### L 100.0100, L500.4050 #### [facility] [address] [place], [address] Hemoglobin (Bld) [Mass/Vol] 14.6 g/dL Normal 13.0-16.5 [facility] Comment on above: Order Comment: Order Date: 10/11/23 Order Info: 018- - CBCD Performed By: #### L 100.0100, L500.4050 #### [facility] [address] [place], [address] IG% 0.400 Normal 0.0-0.9 [facility] Comment on above: Order Comment: Order Date: 10/11/23 Order Info: [id number] - CBCD Result Comment: IG% - Immature Granulocytes (promyelocytes, myelocytes and metamyelocytes) > 1% indicates that a LEFT SHIFT is Present. Performed By: #### L 100.0100, L500.4050 #### [facility] [address] [place], [address] Lymphocytes/100 WBC (Bld) 34.1 % Normal 19-41 [facility] Comment on above: Order Comment: Order Date: 10/11/23 Order Info: 018- - CBCD Performed By: #### L 100.0100, L500.4050 #### [facility] [address] [place], [address] MCH (RBC) [Entitic mass] 31.0 pg Normal 27.0-32.0 [facility] Comment on above: Order Comment: Order Date: 10/11/23 Order Info: 018- - CBCD Performed By: #### L 100.0100, L500.4050 #### [facility] [address] [place], [address] MCHC (RBC) [Mass/Vol] 34.6 g/dL Normal 32-36 [facility] Comment on above: Order Comment: Order Date: 10/11/23 Order Info: 0184-1 - CBCD Performed By: #### L 100.0100, L500.4050 #### [facility] [address] [place], [address] MCV (RBC) [Entitic vol] 89.6 fL Normal 80-94 [facility] Comment on above: Order Comment: Order Date: 10/11/23 Order Info: 0184-1 - CBCD Performed By: #### L 100.0100, L500.4050 #### [facility] [address] [place], [address] Monocytes/100 WBC (Bld) 11.7 % High 0-10 [facility] Comment on above: Order Comment: Order Date: 10/11/23 Order Info: 0184-1 - CBCD Performed By: #### L 100.0100, L500.4050 #### [facility] [address] [place], [address] Neutrophils/100 WBC (Bld) 50.5 % Normal 47-70 [facility] Comment on above: Order Comment: Order Date: 10/11/23 Order Info: 0184-1 - CBCD Performed By: #### L 100.0100, L500.4050 #### [facility] [address] [place], [address] Nucleated RBC (Bld) [#/Vol] 0 10*3/uL Normal 0-5 [facility] Comment on above: Order Comment: Order Date: 10/11/23 Order Info: 0184-1 - CBCD Performed By: #### L 100.0100, L500.4050 #### [facility] [address] [place], [address] Platelet mean volume (Bld) [Entitic vol] 10.1 fL Normal 6.2-12.0 [facility] Comment on above: Order Comment: Order Date: 10/11/23 Order Info: 0184-1 - CBCD Performed By: #### L 100.0100, L500.4050 #### [facility] [address] [place], [address] Platelets (Bld) [#/Vol] 295 10*3/uL Normal 150-450 [facility] Comment on above: Order Comment: Order Date: 10/11/23 Order Info: 0184-1 - CBCD Performed By: #### L 100.0100, L500.4050 #### [facility] [address] [place], [address] RBC (Bld) [#/Vol] 4.71 10*6/uL Normal 4.6-6.2 [facility] Comment on above: Order Comment: Order Date: 10/11/23 Order Info: 0184-1 - CBCD Performed By: #### L 100.0100, L500.4050 #### [facility] [address] [place], [address] RDW SD 42.3 fl Normal 35.1-43.9 [facility] Comment on above: Order Comment: Order Date: 10/11/23 Order Info: 0184-1 - CBCD Performed By: #### L 100.0100, L500.4050 #### [facility] [address] [place], [address] WBC (Bld) [#/Vol] 5.5 10*3/uL Normal 4.4-11.0 [facility] Comment on above: Order Comment: Order Date: 10/11/23 Order Info: 0184-1 - CBCD Performed By: #### L 100.0100, L500.4050 #### [facility] [address] [place], [address] Calculated very low density lipoprotein (VLDL) cholesterol measurementOrdered By: Mian Starr on 04-24-2024 VLDL Cholesterol 14 mg/dL 5-40 [facility] Carbon dioxide, total [Moles /volume] in Central venous bloodOrdered By: Mian Starr on 04-24-2024 CO2 [Moles/Vol] 20.9 mmol/L Low 21.0-32.0 [facility] Chloride assayOrdered By: Raven Starr on 04-24-2024 Chloride [Moles/Vol] 102 mmol/L 98-108 [facility] Comprehensive Metabolic Prof ilon 04-24-2024 Albumin [Mass/Vol] 4.4 g/dL Normal 3.4-4.8 [facility] Comment on above: Order Comment: Order Date: 04/09/24 Order Info: 785- - CMP Order Info: [id number] - LIPID Order Info: 285- - PSA Performed By: #### L 100.0100, L500.4050 #### [facility] [address] [place], [address] Albumin/Globulin [Mass ratio] 1.5 {ratio} Normal 0.9-2.4 [facility] Comment on above: Order Comment: Order Date: 04/09/24 Order Info: [id number] - CMP Order Info: - LIPID Order Info: 285-1 - PSA Performed By: #### L 100.0100, L500.4050 #### [facility] [address] [place], [address] ALK PHOS 58 U/L Normal 40-129 [facility] Comment on above: Order Comment: Order Date: 04/09/24 Order Info: 785-1 - CMP Order Info: [id number] - LIPID Order Info: [id number] - PSA Performed By: #### L 100.0100, L500.4050 #### [facility] [address] [place], [address] ALT [Catalytic activity/Vol] 37 U/L Normal <=46 [facility] Comment on above: Order Comment: Order Date: 04/09/24 Order Info: 07-1 - CMP Order Info: [id number] - LIPID Order Info: [id number] - PSA Performed By: #### L 100.0100, L500.4050 #### [facility] [address] [place], [address] AST [Catalytic activity/Vol] 32 U/L Normal <=37 [facility] Comment on above: Order Comment: Order Date: 04/09/24 Order Info: 86-1 - CMP Order Info: - LIPID Order Info: 7-1 - PSA Performed By: #### L 100.0100, L500.4050 #### [facility] [address] [place], [address] Bilirubin [Mass/Vol] 0.75 mg/dL Normal 0.00-1.30 [facility] Comment on above: Order Comment: Order Date: 04/09/24 Order Info: 785-1 - CMP Order Info: - LIPID Order Info: 285- - PSA Performed By: #### L 100.0100, L500.4050 #### [facility] [address] [place], [address] BUN/CRE 15.4 RATIO Normal 10-20 [facility] Comment on above: Order Comment: Order Date: 04/09/24 Order Info: 0786-1 - CMP Order Info: - LIPID Order Info: 285- - PSA Performed By: #### L 100.0100, L500.4050 #### [facility] [address] [place], [address] Calcium [Mass/Vol] 9.2 mg/dL Normal 7.6-11.0 [facility] Comment on above: Order Comment: Order Date: 04/09/24 Order Info: 0786-1 - CMP Order Info: [id number] - LIPID Order Info: [id number] - PSA Performed By: #### L 100.0100, L500.4050 #### [facility] [address] [place], [address] Chloride [Moles/Vol] 102 mmol/L Normal 98-108 [facility] Comment on above: Order Comment: Order Date: 04/09/24 Order Info: 785-1 - CMP Order Info: [id number] - LIPID Order Info: [id number] - PSA Performed By: #### L 100.0100, L500.4050 #### [facility] [address] [place], [address] CO2 [Moles/Vol] 20.9 mmol/L Low 21.0-32.0 [facility] Comment on above: Order Comment: Order Date: 04/09/24 Order Info: 785- - CMP Order Info: [id number] - LIPID Order Info: 285-1 - PSA Performed By: #### L 100.0100, L500.4050 #### [facility] [address] [place], [address] Creatinine [Mass/Vol] 0.84 mg/dL Normal 0.70-1.20 [facility] Comment on above: Order Comment: Order Date: 04/09/24 Order Info: 785- - CMP Order Info: [id number] - LIPID Order Info: 285-1 - PSA Performed By: #### L 100.0100, L500.4050 #### [facility] [address] [place], [address] GAP 12 Normal 5-15 [facility] Comment on above: Order Comment: Order Date: 04/09/24 Order Info: 785-1 - CMP Order Info: [id number] - LIPID Order Info: [id number] - PSA Performed By: #### L 100.0100, L500.4050 #### [facility] [address] [place], [address] GFR/1.73 sq M.predicted among non-blacks MDRD (S/P/Bld) [Vol rate/Area] 97 mL/min/{1.73_m2} Normal >60 [facility] Comment on above: Order Comment: Order Date: 04/09/24 Order Info: 785- - CMP Order Info: - LIPID Order Info: [id number] - PSA Result Comment: mL/m in/1.73m2 CKD-EPI Creatinine Equation (2020) Performed By: #### L 100.0100, L500.4050 #### [facility] [address] [place], [address] Globulin (S) [Mass/Vol] 2.9 g/dL Normal 2.2-4.2 [facility] Comment on above: Order Comment: Order Date: 04/09/24 Order Info: 785- - CMP Order Info: [id number] - LIPID Order Info: [id number] - PSA Performed By: #### L 100.0100, L500.4050 #### [facility] [address] [place], [address] Glucose [Mass/Vol] 99 mg/dL Normal 70-99 [facility] Comment on above: Order Comment: Order Date: 04/09/24 Order Info: [id number] - CMP Order Info: [id number] - LIPID Order Info: 2851 - PSA Performed By: #### L 100.0100, L500.4050 #### [facility] [address] [place], [address] Potassium [Moles/Vol] 4.3 mmol/L Normal 3.3-5.1 [facility] Comment on above: Order Comment: Order Date: 04/09/24 Order Info: 0786 - CMP Order Info: [id number] - LIPID Order Info: 285-1 - PSA Performed By: #### L 100.0100, L500.4050 #### [facility] [address] [place], [address] Sodium [Moles/Vol] 135 mmol/L Normal 133-145 [facility] Comment on above: Order Comment: Order Date: 04/09/24 Order Info: 0786-1 - CMP Order Info: [id number] - LIPID Order Info: [id number] - PSA Performed By: #### L 100.0100, L500.4050 #### [facility] [address] [place], [address] T PROT 7.3 g/dL Normal 5.9-8.4 [facility] Comment on above: Order Comment: Order Date: 04/09/24 Order Info: 0786-1 - CMP Order Info: [id number] - LIPID Order Info: [id number] - PSA Performed By: #### L 100.0100, L500.4050 #### [facility] [address] [place], [address] Urea nitrogen [Mass/Vol] 13 mg/dL Normal 4-19 [facility] Comment on above: Order Comment: Order Date: 04/09/24 Order Info: 0786-1 - CMP Order Info: [id number] - LIPID Order Info: [id number] - PSA Performed By: #### L 100.0100, L500.4050 #### [facility] [address] [place], [address] Eosinophil percentageOrdered By: Mian Starr on 04-24-2024 Eosinophils/100 WBC (Bld) 2.2 % 0-5 [facility] Erythrocyte distribution wid th ratioOrdered By: Mian Starr on 04-24-2024 Erythrocyte distribution width (RBC) [Ratio] 12.7 % 11.6-14.6 [facility] Erythrocyte distribution wid th standard deviationOrdered By: Mian Starr on 04-24-2024 Erythrocyte distribution width (RBC) [Entitic vol] 42.3 fL 35.1-43.9 [facility] GFR/1.73 sq M.predicted arden g non-blacks MDRD (S/P/Bld) [Vol rate/Area]Ordered By: Mian Starr on 04-24-2024 Estimated GFR (MDRD) Non-Af Amer 97 >60 [facility] Comment on above: mL/min/1.73m2 CKD-EP I Creatinine Equation (2020) Hematocrit Auto (Bld) [Volum e fraction]Ordered By: Mian Starr on 04-24-2024 Hematocrit (Bld) [Volume fraction] 42.2 % 40-54 [facility] Hemoglobin measurementOrdere d By: Mian Starr on 04-24-2024 Hemoglobin (Bld) [Mass/Vol] 14.6 g/dL 13.0-16.5 [facility] Immature granulocytes/100 WB C Auto (Bld)Ordered By: Mian Starr on 04-24-2024 Immature granulocytes/100 WBC (Bld) 0.400 % 0.0-0.9 [facility] Comment on above: IG% - Immature Granu locytes (promyelocytes, myelocytes and metamyelocytes) > 1% indicates that a LEFT SHIFT is Present. LDL calc ser/plasOrdered By: Mian Starr on 04-24-2024 LDL Cholesterol, Calculated 118 mg/dL [facility] Comment on above: Hovvfehfkv=409-501 m g/dL & Higher Lzvf=504 mg/dL or greater Laboratory - Chemistry and C hemistry - challengeOrdered By: Mian Starr on 04-24-2024 AST [Catalytic activity/Vol] 32 U/L <38 [facility] Lipid Profileon 04-24-2024 CHOL:HDL 4.16 Normal [facility] Comment on above: Order Comment: Order Date: 04/09/24 Order Info: 0786-1 - CMP Order Info: [id number] - LIPID Order Info: [id number] - PSA Performed By: #### L 501.9910, L500.4100 #### [facility] [address] [place], [place], [address] Cholesterol [Mass/Vol] 174 mg/dL Normal <=200 [facility] Comment on above: Order Comment: Order Date: 04/09/24 Order Info: 0786-1 - CMP Order Info: [id number] - LIPID Order Info: [id number] - PSA Result Comment: Chol esterol level, Desirable <200 mg/dL Borderline high cholesterol 200-239 mg/dL High cholesterol >=240 mg/dL Recommendations of the NCEP Adult Treatment Panel for the following risk-cutoff thresholds for the [place] population. Performed By: #### L 501.9910, L500.4100 #### [facility] [address] [place], [address] Cholesterol in HDL [Mass/Vol] 42 mg/dL Normal [facility] Comment on above: Order Comment: Order Date: 04/09/24 Order Info: 0786-1 - CMP Order Info: [id number] - LIPID Order Info: [id number] - PSA Result Comment: [facility] on[place] Cholesterol Education Program (NCEP) guidelines: <40 mg/dL: Low HDL-cholesterol (major risk factor for CHD) >= 60 mg/dL: High HDL-cholesterol (negative risk factor for CHD) HDL-cholesterol is affected by a number of factors, e.g. smoking, exercise, hormones, sex and age. Performed By: #### L 501.9910, L500.4100 #### [facility] [address] [place], [address] Cholesterol in LDL [Mass/Vol] 118 mg/dL Normal [facility] Comment on above: Order Comment: Order Date: 04/09/24 Order Info: 0786-1 - CMP Order Info: [id number] - LIPID Order Info: [id number] - PSA Result Comment: Bord vlbeka=427-279 mg/dL Higher Pbfj=920 mg/dL or greater Performed By: #### L 501.9910, L500.4100 #### [facility] [address] [place], [address] Cholesterol in VLDL [Mass/Vol] 14 mg/dL Normal 5-40 [facility] Comment on above: Order Comment: Order Date: 04/09/24 Order Info: 0786-1 - CMP Order Info: [id number] - LIPID Order Info: [id number] - PSA Performed By: #### L 501.9910, L500.4100 #### [facility] [address] [place], [address] Triglyceride [Mass/Vol] 70 mg/dL Normal [facility] Comment on above: Order Comment: Order Date: 04/09/24 Order Info: [id number] - CMP Order Info: [id number] - LIPID Order Info: [id number] - PSA Result Comment: The drugs N-Acetylcysteine and Metamizole may falsely depress this assay. Normal range: <150 mg/dL Borderline High: 150-199 mg/dL High: 200-499 mg/dL Very High: >500 mg/dL Performed By: #### L 501.9910, L500.4100 #### [facility] [address] [place], [address] Lymphocytes Auto (Unsp spec) [#/Vol]Ordered By: Mian Starr on 04-24-2024 Lymphocytes (Bld) [#/Vol] 1.86 10*3/uL 0.83-4.51 [facility] Lymphocytes/100 WBC Auto (Un sp spec)Ordered By: Mian Starr on 04-24-2024 Lymphocytes/100 WBC (Bld) 34.1 % 19-41 [facility] MCV (mean corpuscular volume ) determinationOrdered By: Mian Starr on 04-24-2024 MCV (RBC) [Entitic vol] 89.6 fL 80-94 [facility] Mean corpuscular hemoglobin (MCH) determinationOrdered By: Mian Starr on 04-24-2024 MCH (RBC) [Entitic mass] 31.0 pg 27.0-32.0 [facility] Mean corpuscular hemoglobin concentration (MCHC) determinationOrdered By: Mian Starr on 04-24-2024 MCHC (RBC) [Mass/Vol] 34.6 g/dL 32-36 [facility] Mean platelet volume determi nationOrdered By: Mian Starr on 04-24-2024 Platelet mean volume (Bld) [Entitic vol] 10.1 fL 6.2-12.0 [facility] Monocyte percentageOrdered B y: Mian Starr on 04-24-2024 Monocytes/100 WBC (Bld) 11.7 % High 0-10 [facility] Neutrophil percentageOrdered By: Mian Starr on 04-24-2024 Neutrophils/100 WBC (Bld) 50.5 % 47-70 [facility] Nucleated red blood cell per centageOrdered By: Mian Starr on 04-24-2024 Nucleated RBC/100 WBC (Bld) [Ratio] 0 % 0-5 [facility] PSA, total screeningOrdered By: Mian Starr on 04-24-2024 Prostate Specific Antigen Screen 1.58 ng/mL 0.02-4.00 [facility] Comment on above: This test was perfor med using the [employer] tPSA method. Measured values of a patient sample can vary depending on the testing procedure used. PSA values determined on patient samples by different testing procedures cannot be used interchangeably. If there is a change in PSA assays while monitoring therapy, sequential testing should be performed to confirm baseline values. PSA,Total - Annual Screenon 04-24-2024 PSA,TOT SCREEN 1.58 ng/mL Normal 0.02-4.00 [facility] Comment on above: Order Comment: Order Date: 04/09/24 Order Info: [id number] - CMP Order Info: [id number] - LIPID Order Info: [id number] - PSA Result Comment: This test was performed using the [employer] tPSA method. Measured values of a patient??sample can vary depending on the testing procedure used. PSA values determined on patient samples by different testing procedures cannot be used interchangeably. If there is a change in PSA assays while monitoring therapy, sequential testing should be performed to confirm baseline values. Performed By: #### L 501.9910, L500.4100 #### [facility] [address] [place] [address]. [place], [address] Platelet countOrdered By: Raven Starr on 04-24-2024 Platelets (Bld) [#/Vol] 295 10*3/uL 150-450 [facility] Potassium (Unsp spec) [Mass/ Vol]Ordered By: Mian Starr on 04-24-2024 Potassium [Moles/Vol] 4.3 mmol/L 3.3-5.1 [facility] RBC Auto (Bld) [#/Vol]Ordere d By: Mian Starr on 04-24-2024 RBC (Bld) [#/Vol] 4.71 10*6/uL 4.6-6.2 [facility] Screening total cholesterol/ high density lipoprotein (HDL) cholesterol ratioOrdered By: Mian Starr on 04-24-2024 Cholesterol.total/Choles terol in HDL [Mass ratio] 4.16 {ratio} [facility] Serum creatinine measurement (mass/volume)Ordered By: Mian Starr on 04-24-2024 Creatinine [Mass/Vol] 0.84 mg/dL 0.70-1.20 [facility] Serum globulin measurementOr dered By: Mian Starr on 04-24-2024 Globulin (S) [Mass/Vol] 2.9 g/dL 2.2-4.2 [facility] Serum glucose measurement (m ass/volume)Ordered By: Mian Starr on 04-24-2024 Glucose [Mass/Vol] 99 mg/dL 70-99 [facility] Serum or plasma alanine garcia otransferase (ALT) measurementOrdered By: Mian Starr on 04-24-2024 ALT [Catalytic activity/Vol] 37 U/L <47 [facility] Serum or plasma albumin jorge urement (mass/volume)Ordered By: Mian Starr on 04-24-2024 Albumin [Mass/Vol] 4.4 g/dL 3.4-4.8 [facility] Serum or plasma albumin/glob ulin mass ratioOrdered By: Mian Starr on 04-24-2024 Albumin/Globulin [Mass ratio] 1.5 {ratio} 0.9-2.4 [facility] Serum or plasma alkaline edgard sphatase measurementOrdered By: Mian Starr on 04-24-2024 ALP [Catalytic activity/Vol] 58 U/L 40-129 [facility] Serum or plasma calcium jorge urement (mass/volume)Ordered By: Mian Starr on 04-24-2024 Calcium [Mass/Vol] 9.2 mg/dL 7.6-11.0 [facility] Serum or plasma cholesterol in HDL measurement (mass/volume)Ordered By: Mian Starr on 04-24-2024 Cholesterol in HDL [Mass/Vol] 42 mg/dL >40 [facility] Comment on above: National Cholesterol Education Program (NCEP) guidelines:<40 mg/dL: Low HDL-cholesterol (major risk factor for CHD)>= 60 mg/dL: High HDL-cholesterol (negative risk factor for CHD)HDL-cholesterol is affected by a number of factors, e.g. smoking, exercise, hormones, sex and age. Serum or plasma cholesterol measurement (mass/volume)Ordered By: Mian Starr on 04-24-2024 Cholesterol [Mass/Vol] 174 mg/dL <201 [facility] Comment on above: Cholesterol level, D esirable <200 mg/dLBorderline high cholesterol 200-239 mg/dLHigh cholesterol >=240 mg/dLRecommendations of the NCEP Adult Treatment Panel for the following risk-cutoff thresholds for the [place] population. Serum or plasma urea nitroge n measurement (mass/volume)Ordered By: Main Starr on 04-24-2024 Urea nitrogen [Mass/Vol] 13 mg/dL - [facility] Sodium levelOrdered By: Erick Starr on 04-24-2024 Sodium [Moles/Vol] 135 mmol/L 133-145 [facility] Total proteinOrdered By: Fatimah Starr on 04-24-2024 Protein [Mass/Vol] 7.3 g/dL 5.9-8.4 [facility] Triglycerides measurementOrd ered By: Mian Starr on 04-24-2024 Triglyceride [Mass/Vol] 70 mg/dL <199 [facility] Comment on above: The drugs N-Acetylcy steine and Metamizole may falsely depress this assay. Normal range: <150 mg/dLBorderline High: 150-199 mg/dLHigh: 200-499 mg/dLVery High: >500 mg/dL White blood cell (WBC) count Ordered By: Mian Starr on 04-24-2024 WBC (Bld) [#/Vol] 5.5 10*3/uL 4.4-11.0 [facility] Basophil percentageOrdered B y: Mian Starr on 05-10-2023 Bilirubin [Mass/Vol] 0.40 mg/dL 0.20-1.00 [facility] Comment on above: For patients on eltr ombopag therapy, use of Dimension [place] TBIL is not recommended. Chloride [Moles/Vol] 103 mmol/L 98-107 [facility] Glucose [Mass/Vol] 102 mg/dL 74-106 [facility] Comment on above: Fasting Glucose resu lt from 100 to 125 mg/dL suggests IMPAIRED HOMEOSTASIS per A.D.A. criteria. Potassium [Moles/Vol] 4.3 mmol/L 3.5-5.1 [facility] Protein [Mass/Vol] 7.1 g/dL 6.4-8.2 [facility] Sodium [Moles/Vol] 140 mmol/L 136-145 [facility] Laboratory - Chemistry and C hemistry - challengeOrdered By: Mian Starr on 05-10-2023 Albumin/Globulin [Mass ratio] 1.1 {ratio} 0.9-2.4 [facility] ALP [Catalytic activity/Vol] 73 U/L 45-117 [facility] ALT [Catalytic activity/Vol] 35 U/L 16-61 [facility] CO2 [Moles/Vol] 28.0 mmol/L 21.0-32.0 [facility] Globulin (S) [Mass/Vol] 3.4 g/dL 2.2-4.2 [facility] Urea nitrogen/Creatinine [Mass ratio] 14.6 mg/mg 10-20 [facility] No Panel InformationOrdered By: Mian Starr on 05-10-2023 Estimated GFR (MDRD) Amer 122 mL/min >60 [facility] Comment on above: GFR Calc Estimated GFR (MDRD) Non-Af Amer 101 mL/min >60 [facility] Comment on above: Non- GFR Calc Vitamin D 25-Hydroxy 37.7 ng/mL [facility] Comment on above: Vitamin D 25(OH) Sta tus Range Deficiency <20 ng/mL (50nmol/L) Insufficiency 20 - 30 ng/mL (50 - 75 nmol/L) Sufficiency 30 - 100 ng/mL (75 - 250 nmol/L) Toxicity >100 ng/mL (>250 nmol/L) Serum or plasma calcium jorge urement (mass/volume)Ordered By: Mian Starr on 05-10-2023 Calcium [Mass/Vol] 9.0 mg/dL 8.5-10.1 [facility] Serum or plasma creatinine m easurement (mass/volume)Ordered By: Mian Starr on 05-10-2023 Creatinine [Mass/Vol] 0.82 mg/dL 0.70-1.30 [facility] Comment on above: The validity of the calculated GFR & GFRAA in patients over 70 years has not been determined. Clinical correlation is essential. Serum or plasma urea nitroge n measurement (mass/volume)Ordered By: Mian Matty on 05-10-2023 Urea nitrogen [Mass/Vol] 12 mg/dL 7-18 [facility] Thin prep Papanicolaou smear with manual screeningOrdered By: Ohiohealthtrisha Matty on 05-10-2023 Thin prep Papanicolaou smear with manual screening 3.7 g/dL 3.2-5.0 [facility] Thin prep Papanicolaou smear with manual screening 29 U/L 15-37 [facility] Thin prep Papanicolaou smear with manual screening 9 5-15 [facility] Absolute lymphocyte countOrd ered By: [place]healt[place]risha Matty on 10-08-2022 Lymphocytes Auto (Unsp spec) [#/Vol] 1.57 10*3/uL 0.83-4.51 [facility] Basophil percentageOrdered B y: Mian Matty on 10-08-2022 Basophils/100 WBC (Bld) 1.2 % 0-1 [facility] Bilirubin [Mass/Vol] 0.60 mg/dL 0.20-1.00 [facility] Comment on above: For patients on eltr ombopag therapy, use of Dimension [place] TBIL is not recommended. Chloride [Moles/Vol] 100 mmol/L 98-107 [facility] Cholesterol [Mass/Vol] 191 mg/dL <200 [facility] Comment on above: <200 mg/dL Desirable 200-240 mg/dL Borderline >240 mg/dL High Risk Eosinophils/100 WBC (Bld) 2.7 % 0-5 [facility] Glucose [Mass/Vol] 90 mg/dL 74-106 [facility] Neutrophils (Bld) [#/Vol] 2.4 10*3/uL 2.0-7.7 [facility] Neutrophils/100 WBC (Bld) 50.2 % 47-70 [facility] Potassium [Moles/Vol] 4.2 mmol/L 3.5-5.1 [facility] Protein [Mass/Vol] 7.2 g/dL 6.4-8.2 [facility] Sodium [Moles/Vol] 134 mmol/L 136-145 [facility] Triglyceride [Mass/Vol] 38 mg/dL <199 [facility] Comment on above: The drugs N-Acetylcy steine and Metamizole may falsely depress this assay.Serum Triglycerides Reference Interval Normal <150 mg/dL Borderline high 150 - 199 mg/dL High 200 - 499 mg/dL Very High > or = 500 mg/dL WBC (Bld) [#/Vol] 4.9 10*3/uL 4.4-11.0 [facility] Blood erythrocytes count (nu mber/volume)Ordered By: Mian Starr on 10-08-2022 RBC (Bld) [#/Vol] 4.42 10*6/uL 4.6-6.2 [facility] Blood hemoglobin measurement (mass/volume)Ordered By: Mian Starr on 10-08-2022 Hemoglobin (Bld) [Mass/Vol] 14.0 g/dL 13.0-16.5 [facility] Blood lymphocytes/100 leukoc ytesOrdered By: Mian Starr on 10-08-2022 Lymphocytes/100 WBC (Bld) 32.2 % 19-41 [facility] Blood monocytes/100 leukocyt esOrdered By: Mian Starr on 10-08-2022 Monocytes/100 WBC (Bld) 13.3 % 0-10 [facility] Blood platelet mean volumeOr dered By: Mian Starr on 10-08-2022 Platelet mean volume (Bld) [Entitic vol] 10.1 fL 6.2-12.0 [facility] Determination of erythrocyte mean corpuscular volume (MCV)Ordered By: Mian Starr on 10-08-2022 MCV (RBC) [Entitic vol] 92.1 fL 80-94 [facility] Hematocrit Auto (Bld) [Volum e fraction]Ordered By: Mian Starr on 10-08-2022 Hematocrit (Bld) [Volume fraction] 40.7 % 40-54 [facility] Laboratory - Chemistry and C hemistry - challengeOrdered By: Mian Starr on 10-08-2022 ALP [Catalytic activity/Vol] 83 U/L 45-117 [facility] ALT [Catalytic activity/Vol] 36 U/L 16-61 [facility] CO2 [Moles/Vol] 29.0 mmol/L 21.0-32.0 [facility] Globulin (S) [Mass/Vol] 3.3 g/dL 2.2-4.2 [facility] Urea nitrogen/Creatinine [Mass ratio] 15.2 mg/mg 10-20 [facility] Laboratory - Hematology and Cell countsOrdered By: Mian Starr on 10-08-2022 Erythrocyte distribution width (RBC) [Entitic vol] 42.7 fL 35.1-43.9 [facility] Erythrocyte distribution width (RBC) [Ratio] 12.6 % 11.6-14.6 [facility] Immature granulocytes/100 WBC (Bld) 0.400 % 0.0-0.9 [facility] Comment on above: IG% - Immature Granu locytes (promyelocytes, myelocytes and metamyelocytes) > 1% indicates that a LEFT SHIFT is Present. MCH (RBC) [Entitic mass] 31.7 pg 27.0-32.0 [facility] Nucleated RBC/100 WBC (Bld) [Ratio] 0 % 0-5 [facility] MCHC Auto (RBC) [Mass/Vol]Or dered By: Mian Starr on 10-08-2022 MCHC (RBC) [Mass/Vol] 34.4 g/dL 32-36 [facility] No Panel InformationOrdered By: Mian Starr on 10-08-2022 Estimated GFR (MDRD) Amer 116 mL/min >60 [facility] Comment on above: GFR Calc Estimated GFR (MDRD) Non-Af Amer 96 mL/min >60 [facility] Comment on above: Non- GFR Calc Prostate Specific Antigen Screen 2.70 ng/mL 0.00-4.00 [facility] Comment on above: This test was perfor med using the TPSA assay method for the[employer] chemistry system. Values obtained with differentassay methods cannot be used interchangably.When changing PSA assays in the course of monitoring apatient, additional sequential testing should be carriedout to confirm baseline values. Platelets bldOrdered By: Fatimah Starr on 10-08-2022 Platelets (Bld) [#/Vol] 253 10*3/uL 150-450 [facility] Serum or plasma albumin jorge urement (mass/volume)Ordered By: Mian Starr on 10-08-2022 Albumin [Mass/Vol] 3.9 g/dL 3.2-5.0 [facility] Serum or plasma albumin/glob ulin mass ratioOrdered By: Mian Starr on 10-08-2022 Albumin/Globulin [Mass ratio] 1.2 {ratio} 0.9-2.4 [facility] Serum or plasma calcium jorge urement (mass/volume)Ordered By: Mian Starr on 10-08-2022 Calcium [Mass/Vol] 8.9 mg/dL 8.5-10.1 [facility] Serum or plasma cholesterol in HDL measurement (mass/volume)Ordered By: Mian Starr on 10-08-2022 Cholesterol in HDL [Mass/Vol] 50 mg/dL >40 [facility] Comment on above: The drugs N-Acetylcy steine and Metamizole may falsely depress this assay. Reference Range HDL <40 mg/dL Low HDL Cholesterol HDL >or= 60 mg/dL High HDL Cholesterol Serum or plasma cholesterol in VLDL measurement (mass/volume)Ordered By: Mian Starr on 10-08-2022 Cholesterol in VLDL [Mass/Vol] 8 mg/dL 5-40 [facility] Serum or plasma creatinine m easurement (mass/volume)Ordered By: Mian Starr on 10-08-2022 Creatinine [Mass/Vol] 0.86 mg/dL 0.70-1.30 [facility] Comment on above: The validity of the calculated GFR & GFRAA in patients over 70 years has not been determined. Clinical correlation is essential. Serum or plasma low density lipoprotein (LDL) cholesterol measurement (mass/volume)Ordered By: Mian Starr on 10-08-2022 Cholesterol in LDL [Mass/Vol] 133 mg/dL 0-130 [facility] Serum or plasma urea nitroge n measurement (mass/volume)Ordered By: Mian Starr on 10-08-2022 Urea nitrogen [Mass/Vol] 13 mg/dL 7-18 [facility] Serum rheumatoid factor dete ctionOrdered By: Mian Starr on 10-08-2022 Rheumatoid factor Ql (S) < 10.0 IU/mL <15 [facility] Thin prep Papanicolaou smear with manual screeningOrdered By: Mian Starr on 10-08-2022 Thin prep Papanicolaou smear with manual screening 26 U/L 15-37 [facility] Thin prep Papanicolaou smear with manual screening 5 5-15 [facility] Encounters Encounter Date Encounter Type Care Provider Facility Start: 05-28-2024 End: 05-28-2024 ambulatory Mian Starr MD Work Phone: [facility] Work Phone: Start: 05-28-2024 End: 05-28-[address] [facility] Start: 05-28-2024 End: 05-28-2024 ambulatory Mian Starr Facility:[facility] Start: 04-24-2024 End: 04-24-2024 ambulatory Mian Starr MD Work Phone: [facility] Work Phone: Start: 04-24-2024 End: 04-24-[address] [facility] Start: 04-24-2024 End: 04-24-2024 ambulatory Mian Starr Facility:[facility] Start: 05-10-2023 End: 05-10-2023 ambulatory MD Mian Starr Work Phone: [facility] Work Phone: Start: 05-10-2023 End: 05-10-2023 Patient encounter procedure [facility] St[facility] Start: 04-13-2023 End: 04-13-2023 ambulatory MD Mian Starr Work Phone: [facility] Work Phone: Start: 04-13-2023 End: 04-13-2023 Patient encounter procedure MD Mian Starr Work Phone: [facility]-Outpatient Bone Densitometry Work Phone: Start: 03-11-2023 Non-patient / Non-visit MD Mian Starr Work Phone: [facility] Start: 03-11-2023 End: 03-11-2023 ambulatory MD Mian Starr Work Phone: [facility] Work Phone: Start: 03-11-2023 End: 03-11-2023 Patient encounter procedure MD Mian Starr Work Phone: [facility]-Cardiovascular Services Work Phone: Start: 10-20-2022 Non-patient / Non-visit MD Mian Starr Work Phone: [facility] Start: 10-20-2022 End: 10-20-2022 ambulatory MD Mian Starr Work Phone: [facility] Work Phone: Start: 10-20-2022 End: 10-20-2022 Patient encounter procedure MD Mian Starr Work Phone: [facility]-Pulmonary Services/Neurology Work Phone: Start: 10-08-2022 End: 10-08-2022 ambulatory [facility] Work Phone: Start: 10-08-2022 End: 10-08-2022 Patient encounter procedure [facility] Work Phone: Start: 05-09-2019 End: 05-09-2019 Patient encounter procedure JERRY GUERRA [facility] Procedures Date Procedure Procedure Detail Performing Clinician Start: 04-13-2023 Dual energy X-ray absorptiometry MD Mian Starr Work Phone: Start: 10-08-2022 Plain x-ray of hand Payers Date Payer Category Payer Private Health Insurance [id number] 2024 Self-pay [id number] 1960 Unknown [id number] Unknown [id number] Unknown [id number] Unknown [id number] Social History Date Type Detail Facility Tobacco smoking stat [facility] Unknown if ever smoked [facility] Work Phone: Start: 1960 Sex Assigned At Male [facility] Tobacco smoking stat [facility] Unknown if ever smoked [facility] Work Phone: Start: 05-04-2024 End: 06-01-2024 Sex Male (finding) [facility] Procedure note 10-20-2022 Note Date & Type Note Facility 10-20-2022 Procedure note [facility] Evaluation note Note Date & Type Note Facility Evaluation note No assessment information availa ble [facility] Work Phone: Reason for referral (narrative) Note Date & Type Note Facility Reason for referral (narrative) No reason for referral information available [facility] Work Phone: Summary Purpose Family History No Family History Records FoundNo Family History Records Found Advance Directives No Advanced Directives Records FoundNo Advanced Directives Records Found Chief Complaint and Reason for Visit Chief Complaint LABS AND XRAY Chief Complaint LABS AND XRAY Encounter for general adult medical examination wi Encounter for general adult medical examination wi Chief Complaint SOB Shortness of breath Chief Complaint SOB Shortness of breath OSTEO Chief Complaint Admit Date EOApril 24, 2024 9:21 am Chief Complaint Admit Date EOApril 24, 2024 9:21 am PAIN- COPY PCP May 28, 2024 8:47 am Additional Source Comments (unrecognized sect ion and content) No Status Records FoundNo Status Records Found INFORMATION SOURCE (unrecogn ized section and content) DATE CREATED AUTHOR 05/09/2019 [facility] DATE CREATED AUTHOR AUTHOR'S MAYRA ATION 06/03/2024 [facility] Care Teams (unrecognized sec tion and content) Team Status: Active Member Role Status Dates Dr. Juan Jose Mccoy MD Family Provider Active Mian Starr MD Primary Care Provider Active Team Status: Inactive Member Role Status Dates Mian Starr MD Primary Care Provide r, Attending Provider, Referring Provider Active Team Status: Active Member Role Status Cole Starr MD Primary Care Provider, Other Provider Active Dr. Hector Matta DO Attending Provider Active Team Status: Inactive Member Role Status Cole Starr MD Primary Care Provider, Attending Prov ider Active Team Status: Active Member Role Status Cole Starr MD Primary Care Provide r, Referring Provider, Other Provider Active Dr. Julián Jacobs MD Attending Provider Active Team Status: Inactive Member Role Status Dates Mian Starr MD Primary Care Provider Active St art: April 24, 2024 End: April 24, 2024 Mian Starr MD Attending Provider Active Start : April 24, 2024 End: April 24, 2024 Mian Starr MD Referring Provider Active Start : April 24, 2024 End: April 24, 2024 Team Status: Inactive Member Role Status Cole Starr MD Primary Care Provider Active St art: May 28, 2024 End: May 28, 2024 Dr. Rhoda Tripathi MD Attending Provider Active Start: May 28, 2024 End: May 28, 2024 Dr. Rhoda Tripathi MD Referring Provider Active Start: May 28, 2024 End: May 28, 2024 Goals (unrecognized section and content) Goals may be documented in a n alternate sectionGoals may be documented in an alternate sectionGoals may be documented in an alternate sectionGoals may be documented in an alternate sectionGoals may be documented in an alternate sectionGoals may be documented in an alternate sectionGoals may be documented in an alternate section FOR RECORDS PERTAINING TO PATIENTS WHO ARE [...] BE BASED ON THE PRIMARY CLINICAL RECORDS. [facility] [employer] [facility]. provides no warranty or guarantee of the accuracy or completeness of information in this document.
--- OUTSIDE RECORDS SUMMARY | 2024-08-21 07:23 | XMS RPT_ITS | CCD ---
Author Organization [facility] Care Team Providers Care Lead Portfolio Manager Name Role Phone JERRY GUERRA Admitting Unavailable JERRY GUERRA Attending Unavailable JERRY GUERRA Primary Care Unavailable MD Mian Starr Primary Care Provider MD Mian Starr Other Provider Dr. Hector Matta Attending Provider 1([facility])[phone] MD Mian Starr Primary Care Provider 1([facility])[phone] MD Mian Starr Referring Provider 1([facility])[phone] MD Mian Starr Other Provider Dr. Julián Jacobs Attending Provider 1([facility])[phone] MD Mian Starr Primary Care Provider 1([facility])[phone] MD Mian Starr Referring Provider 1([facility])[phone] MD Mian Starr Other Provider Dr. Julián Jacobs Attending Provider 1([facility])[phone] Mian Starr MD Primary Care Provider 1([facility])[phone] Mian Starr MD Attending Provider 1([facility])[phone] Mian Starr MD Referring Provider 1([facility])[phone] Rhoda Tripathi MD Attending Provider [...] DIREC Ton 05-29-2024 RIVAS,DIRECT Negative Normal Negative [facility] Comment on above: Result Comment: Perf ormed at: [facility] [id number] Pharmaceutical Operator: Daniel Sánchez PhD, Phone: [phone] Performed By: #### L 100.0100, L500.4050 #### [facility] [address] [facility] [place], [address] CCP IgG Antibodieson 025 CCP IgG Ab. 4 units Normal 0-19 [facility] Comment on above: Result Comment: Nega tive <20 Weak positive 20 - 39 Moderate positive 40 - 59 Strong positive >59 Performed at: [facility] [id number] Pharmaceutical Operator: Daniel Sánchez PhD, Phone: [phone] Performed By: #### L 100.0100, L522.4054 #### [facility] [address] [place] [address], [address] RIVAS serumOrdered By: Rhoda ruiz on 05-28-2024 Anti-Nuclear Antibody Screen Negative Negative [facility] Comment on above: Performed at: [facility] [address] [id number] Director: Daniel Sánchez PhD, Phone: [phone] Absolute neutrophil countOrd ered By: Rhoda Tripathi on 05-28-2024 Neutrophils (Bld) [#/Vol] 2.9 10*3/uL 2.0-7.7 [facility] Anion gap in Serum or Plasma Ordered By: Rhoda Tripathi on 05-28-2024 Anion gap [Moles/Vol] 9 mmol/L 5-15 [facility] BUN/creatinine ratioOrdered By: Rhoda Tripathi on 05-28-2024 Urea nitrogen/Creatinine [Mass ratio] 17.9 mg/mg 10-20 [facility] Basophil percentageOrdered B y: Rhoda Preciadoyas on 05-28-2024 Basophils/100 WBC (Bld) 1.3 % High 0-1 [facility] Bilirubin, totalOrdered By: Rhoda Preciadoyas on 05-28-2024 Bilirubin [Mass/Vol] 0.36 mg/dL 0.00-1.[address] [facility] CBC W/Diff, Automatedon Absolute Lymph 2.05 X10 3/uL Normal 0.83-4.51 [facility] Comment on above: Performed By: #### L 3890.6301, L3100.5475, L500.4050, L4600.0100, L3890.6102, L101.9900, L501.6710, L505.7010, L3890.6202, L100.0100 #### [facility] [address] [place], [place], [phone] (525) Absolute Neut 2.9 X10 3/uL Normal 2.0-7.7 [facility] Comment on above: Performed By: #### L 3890.6301, L3100.5475, L500.4050, L4600.0100, L3890.6102, L101.9900, L501.6710, L505.7010, L3890.6202, L100.0100 #### [facility] [address] [place], [place], [phone] (562) Basophils/100 WBC (Bld) 1.3 % High 0-1 [facility] Comment on above: Performed By: #### L 3890.6301, L3100.5475, L500.4050, L4600.0100, L3890.6102, L101.9900, L501.6710, L505.7010, L3890.6202, L100.0100 #### [facility] [address] [place], [address] Eosinophils/100 WBC (Bld) 2.5 % Normal 0-5 [facility] Comment on above: Performed By: #### L 3890.6301, L3100.5475, L500.4050, L4600.0100, L3890.6102, L101.9900, L501.6710, L505.7010, L3890.6202, L100.0100 #### [facility] [address] [place], [address] (677) Erythrocyte distribution width (RBC) [Ratio] 13.0 % Normal 11.6-14.6 [facility] Comment on above: Performed By: #### L 3890.6301, L3100.5475, L500.4050, L4600.0100, L3890.6102, L101.9900, L501.6710, L505.7010, L3890.6202, L100.0100 #### [facility] [address] [place], [address] (083) Hematocrit (Bld) [Volume fraction] 41.3 % Normal 40-54 [facility] Comment on above: Performed By: #### L 3890.6301, L3100.5475, L500.4050, L4600.0100, L3890.6102, L101.9900, L501.6710, L505.7010, L3890.6202, L100.0100 #### [facility] [address] [place], [address] (599) Hemoglobin (Bld) [Mass/Vol] 13.6 g/dL Normal 13.0-16.5 [facility] Comment on above: Performed By: #### L 3890.6301, L3100.5475, L500.4050, L4600.0100, L3890.6102, L101.9900, L501.6710, L505.7010, L3890.6202, L100.0100 #### [facility] [address] [place], [address] IG% 0.500 Normal 0.0-0.9 [facility] Comment on above: Result Comment: IG% - Immature Granulocytes (promyelocytes, myelocytes and metamyelocytes) > 1% indicates that a LEFT SHIFT is Present. Performed By: #### L 3890.6301, L3100.5475, L500.4050, L4600.0100, L3890.6102, L101.9900, L501.6710, L505.7010, L3890.6202, L100.0100 #### [facility] [address] [place], [address] Lymphocytes/100 WBC (Bld) 34.5 % Normal 19-41 [facility] Comment on above: Performed By: #### L 3890.6301, L3100.5475, L500.4050, L4600.0100, L3890.6102, L101.9900, L501.6710, L505.7010, L3890.6202, L100.0100 #### [facility] [address] [place], [address] MCH (RBC) [Entitic mass] 30.5 pg Normal 27.0-32.0 [facility] Comment on above: Performed By: #### L 3890.6301, L3100.5475, L500.4050, L4600.0100, L3890.6102, L101.9900, L501.6710, L505.7010, L3890.6202, L100.0100 #### [facility] [address] [place], [address] MCHC (RBC) [Mass/Vol] 32.9 g/dL Normal 32-36 [facility] Comment on above: Performed By: #### L 3890.6301, L3100.5475, L500.4050, L4600.0100, L3890.6102, L101.9900, L501.6710, L505.7010, L3890.6202, L100.0100 #### [facility] [address] [place], [address] MCV (RBC) [Entitic vol] 92.6 fL Normal 80-94 [facility] Comment on above: Performed By: #### L 3890.6301, L3100.5475, L500.4050, L4600.0100, L3890.6102, L101.9900, L501.6710, L505.7010, L3890.6202, L100.0100 #### [facility] [address] [place], [address] Monocytes/100 WBC (Bld) 11.8 % High 0-10 [facility] Comment on above: Performed By: #### L 3890.6301, L3100.5475, L500.4050, L4600.0100, L3890.6102, L101.9900, L501.6710, L505.7010, L3890.6202, L100.0100 #### [facility] [address] [place], [address] Neutrophils/100 WBC (Bld) 49.4 % Normal 47-70 [facility] Comment on above: Performed By: #### L 3890.6301, L3100.5475, L500.4050, L4600.0100, L3890.6102, L101.9900, L501.6710, L505.7010, L3890.6202, L100.0100 #### [facility] [address] [place], [address] Nucleated RBC (Bld) [#/Vol] 0 10*3/uL Normal 0-5 [facility] Comment on above: Performed By: #### L 3890.6301, L3100.5475, L500.4050, L4600.0100, L3890.6102, L101.9900, L501.6710, L505.7010, L3890.6202, L100.0100 #### [facility] [address] [place], [address] Platelet mean volume (Bld) [Entitic vol] 10.6 fL Normal 6.2-12.0 [facility] Comment on above: Performed By: #### L 3890.6301, L3100.5475, L500.4050, L4600.0100, L3890.6102, L101.9900, L501.6710, L505.7010, L3890.6202, L100.0100 #### [facility] [address] [place], [address] ( Platelets (Bld) [#/Vol] 256 10*3/uL Normal 150-450 [facility] Comment on above: Performed By: #### L 3890.6301, L3100.5475, L500.4050, L4600.0100, L3890.6102, L101.9900, L501.6710, L505.7010, L3890.6202, L100.0100 #### [facility] [address] [place], [address] (424) RBC (Bld) [#/Vol] 4.46 10*6/uL Low 4.6-6.2 [facility] Comment on above: Performed By: #### L 3890.6301, L3100.5475, L500.4050, L4600.0100, L3890.6102, L101.9900, L501.6710, L505.7010, L3890.6202, L100.0100 #### [facility] [address] [place], [address] RDW SD 44.0 fl High 35.1-43.9 [facility] Comment on above: Performed By: #### L 3890.6301, L3100.5475, L500.4050, L4600.0100, L3890.6102, L101.9900, L501.6710, L505.7010, L3890.6202, L100.0100 #### [facility] [address] [place], [address] WBC (Bld) [#/Vol] 6.0 10*3/uL Normal 4.4-11.0 [facility] Comment on above: Performed By: #### L 3890.6301, L3100.5475, L500.4050, L4600.0100, L3890.6102, L101.9900, L501.6710, L505.7010, L3890.6202, L100.0100 #### [facility] [address] [place], [place], [phone] CRPon 05-28-2024 C-REACTIVE PROT < 3.00 Normal 0.0-3.0 [facility] Comment on above: Performed By: #### L 100.0100, L500.4050 #### [facility] [address] [place], [address] CRP [Mass/Vol]Ordered By: Jamison Tripathi on 05-28-2024 C-Reactive Protein Extended Range < 3.00 mg/L 0.0-3.0 [facility] Carbon dioxide, total [Moles /volume] in Central venous bloodOrdered By: Rhoda Tripathi on 05-28-2024 CO2 [Moles/Vol] 26.4 mmol/L 21.0-32.0 [facility] Chloride assayOrdered By: Jamison Tripathi on 05-28-2024 Chloride [Moles/Vol] 102 mmol/L 98-[address] [facility] Comprehensive Metabolic Prof ilon 05-28-2024 Albumin [Mass/Vol] 4.3 g/dL Normal 3.4-4.8 [facility] Comment on above: Performed By: #### L 3890.6301, L3100.5475, L500.4050, L4600.0100, L3890.6102, L101.9900, L501.6710, L505.7010, L3890.6202, L100.0100 #### [facility] [address] [place], [address] Albumin/Globulin [Mass ratio] 1.7 {ratio} Normal 0.9-2.4 [facility] Comment on above: Performed By: #### L 3890.6301, L3100.5475, L500.4050, L4600.0100, L3890.6102, L101.9900, L501.6710, L505.7010, L3890.6202, L100.0100 #### [facility] [address] [place], [address] ALK PHOS 80 U/L Normal 40-129 [facility] Comment on above: Performed By: #### L 3890.6301, L3100.5475, L500.4050, L4600.0100, L3890.6102, L101.9900, L501.6710, L505.7010, L3890.6202, L100.0100 #### [facility] [address] [place], [address] ALT [Catalytic activity/Vol] 35 U/L Normal <=46 [facility] Comment on above: Performed By: #### L 3890.6301, L3100.5475, L500.4050, L4600.0100, L3890.6102, L101.9900, L501.6710, L505.7010, L3890.6202, L100.0100 #### [facility] [address] [place], [address] AST [Catalytic activity/Vol] 33 U/L Normal <=37 [facility] Comment on above: Performed By: #### L 3890.6301, L3100.5475, L500.4050, L4600.0100, L3890.6102, L101.9900, L501.6710, L505.7010, L3890.6202, L100.0100 #### [facility] [address] [place], [place], [phone] Bilirubin [Mass/Vol] 0.36 mg/dL Normal 0.00-1.[address] [facility] Comment on above: Performed By: #### L 3890.6301, L3100.5475, L500.4050, L4600.0100, L3890.6102, L101.9900, L501.6710, L505.7010, L3890.6202, L100.0100 #### [facility] [address] [place], [place], [id number] BUN/CRE 17.9 RATIO Normal 10-20 [facility] Comment on above: Performed By: #### L 3890.6301, L3100.5475, L500.4050, L4600.0100, L3890.6102, L101.9900, L501.6710, L505.7010, L3890.6202, L100.0100 #### [facility] [address] [place], [place], [id number] Calcium [Mass/Vol] 9.2 mg/dL Normal 7.6-11.0 [facility] Comment on above: Performed By: #### L 3890.6301, L3100.5475, L500.4050, L4600.0100, L3890.6102, L101.9900, L501.6710, L505.7010, L3890.6202, L100.0100 #### [facility] [address] [place], [place], [id number] Chloride [Moles/Vol] 102 mmol/L Normal 98-[address] [facility] Comment on above: Performed By: #### L 3890.6301, L3100.5475, L500.4050, L4600.0100, L3890.6102, L101.9900, L501.6710, L505.7010, L3890.6202, L100.0100 #### [facility] [address] [place], [address] CO2 [Moles/Vol] 26.4 mmol/L Normal 21.0-32.0 [facility] Comment on above: Performed By: #### L 3890.6301, L3100.5475, L500.4050, L4600.0100, L3890.6102, L101.9900, L501.6710, L505.7010, L3890.6202, L100.0100 #### [facility] [address] [place], [place], [phone] (648) Creatinine [Mass/Vol] 0.85 mg/dL Normal 0.70-1.20 [facility] Comment on above: Performed By: #### L 3890.6301, L3100.5475, L500.4050, L4600.0100, L3890.6102, L101.9900, L501.6710, L505.7010, L3890.6202, L100.0100 #### [facility] [address] [place], [place], [phone] (973) GAP 9 Normal 5-15 [facility] Comment on above: Performed By: #### L 3890.6301, L3100.5475, L500.4050, L4600.0100, L3890.6102, L101.9900, L501.6710, L505.7010, L3890.6202, L100.0100 #### [facility] [address] [place], [place], [phone] (748) GFR/1.73 sq M.predicted among non-blacks MDRD (S/P/Bld) [Vol rate/Area] 97 mL/min/{1.73_m2} Normal >60 [facility] Comment on above: Result Comment: mL/m in/1.73m2 CKD-EPI Creatinine Equation (2020) Performed By: #### L 3890.6301, L3100.5475, L500.4050, L4600.0100, L3890.6102, L101.9900, L501.6710, L505.7010, L3890.6202, L100.0100 #### [facility] [address] [place], [address] Globulin (S) [Mass/Vol] 2.5 g/dL Normal 2.2-4.2 [facility] Comment on above: Performed By: #### L 3890.6301, L3100.5475, L500.4050, L4600.0100, L3890.6102, L101.9900, L501.6710, L505.7010, L3890.6202, L100.0100 #### [facility] [address] [place], [address] Glucose [Mass/Vol] 99 mg/dL Normal 70-99 [facility] Comment on above: Performed By: #### L 3890.6301, L3100.5475, L500.4050, L4600.0100, L3890.6102, L101.9900, L501.6710, L505.7010, L3890.6202, L100.0100 #### [facility] [address] [place], [address] Potassium [Moles/Vol] 4.4 mmol/L Normal 3.3-5.1 [facility] Comment on above: Performed By: #### L 3890.6301, L3100.5475, L500.4050, L4600.0100, L3890.6102, L101.9900, L501.6710, L505.7010, L3890.6202, L100.0100 #### [facility] [address] [place], [address] Sodium [Moles/Vol] 138 mmol/L Normal 133-145 [facility] Comment on above: Performed By: #### L 3890.6301, L3100.5475, L500.4050, L4600.0100, L3890.6102, L101.9900, L501.6710, L505.7010, L3890.6202, L100.0100 #### [facility] [address] [facility] [place], [address] T PROT 6.9 g/dL Normal 5.9-8.4 [facility] Comment on above: Performed By: #### L 3890.6301, L3100.5475, L500.4050, L4600.0100, L3890.6102, L101.9900, L501.6710, L505.7010, L3890.6202, L100.0100 #### [facility] [address] [facility] [place], [address] Urea nitrogen [Mass/Vol] 15 mg/dL Normal 4-19 [facility] Comment on above: Performed By: #### L 3890.6301, L3100.5475, L500.4050, L4600.0100, L3890.6102, L101.9900, L501.6710, L505.7010, L3890.6202, L100.0100 #### [facility] [address] [facility] [place], [address] Cyclic citrullinated peptide IgG QnOrdered By: Rhoda Tripathi on 05-28-2024 Cyclic Citrullinated Peptide IgG Ab 4 units 0-19 [facility] Comment on above: Negative <20 Weak po sitive 20 - 39 Moderate positive 40 - 59 Strong positive >59Performed at: - [facility] [id number] Director: Daniel Sánchez PhD, Phone: [phone] Eosinophil percentageOrdered By: Rhoda Tripathi on 05-28-2024 Eosinophils/100 WBC (Bld) 2.5 % 0-5 [facility] Erythrocyte Sed Rateon 05-28 SED RATE 1 mm/hr Normal 0-20 [facility] Comment on above: Performed By: #### L 3890.6301, L3100.5475, L500.4050, L4600.0100, L3890.6102, L101.9900, L501.6710, L505.7010, L3890.6202, L100.0100 #### [facility] [place], [address] Erythrocyte distribution wid th (RBC) [Ratio]Ordered By: Rhoda Tripathi on 05-28-2024 Erythrocyte distribution width (RBC) [Entitic vol] 44.0 fL High 35.1-43.9 [facility] Erythrocyte distribution wid th ratioOrdered By: Rhoda Tripathi on 05-28-2024 Erythrocyte distribution width (RBC) [Ratio] 13.0 % 11.6-14.6 [facility] Erythrocyte sedimentation ra teOrdered By: Rhoda Tripathi on 05-28-2024 ESR (Bld) [Velocity] 1 mm/h 0-[address] [facility] GFR/1.73 sq M.predicted arden g non-blacks MDRD (S/P/Bld) [Vol rate/Area]Ordered By: Rhoda Tripathi on 05-28-2024 Estimated GFR (MDRD) Non-Af Amer 97 >60 [facility] Comment on above: mL/min/1.73m2 CKD-EP I Creatinine Equation (2020) HBV surface Ab Ql (S)Ordered By: Rhoda Tripathi on 05-28-2024 Hepatitis B Surface Antibody Non-Reactive [facility] Comment on above: <8.5 mIU/mL: Non-[place] ctive8.5<= x <11.5 mIU/mL: Indeterminate>=11.5 mIU/mL: Reactive Non Reactive: Inconsistent with immunity less than <10 mIU/mL Reactive: Consistent with immunity greater than or equal to 10 mIU/mL HBV surface Ag Ql (S)Ordered By: Rhoda Tripathi on 05-28-2024 Hepatitis B Surface Antigen Non-Reactive Nonreactive [facility] Comment on above: Reactive: Presumptiv e evidence of HBV. Repeatedly reactive samples must be confirmed using a neutralization test ([facility] HBsAg Confirmatory Test)Non-Reactive: HBsAg not detected; does not exclude the possibility of exposure to HBV Hematocrit Auto (Bld) [Volum e fraction]Ordered By: Rhoda Tripathi on 05-28-2024 Hematocrit (Bld) [Volume fraction] 41.3 % 40-54 [facility] Hemoglobin measurementOrdere d By: Rhoda Tripathi on 05-28-2024 Hemoglobin (Bld) [Mass/Vol] 13.6 g/dL 13.0-16.5 [facility] Hepatitis B Surface Antibody on 05-28-2024 HEP B Surf Ab Non-Reactive Normal [facility] Comment on above: Result Comment: <8.5 mIU/mL: Non-Reactive 8.5<= x <11.5 mIU/mL: Indeterminate >=11.5 mIU/mL: Reactive Non Reactive: Inconsistent with immunity less than <10 mIU/mL Reactive: Consistent with immunity greater than or equal to 10 mIU/mL Performed By: #### L 3890.6301, L3100.5475, L500.4050, L4600.0100, L3890.6102, L101.9900, L501.6710, L505.7010, L3890.6202, L100.0100 #### [facility] [address] [place], [address] Hepatitis C Antibodyon 05-28 Hepatitis C Ab Non-Reactive Normal Nonreactive [facility] Comment on above: Result Comment: Reac tive: Presumptive evidence of antibodies to HCV. Follow CDC recommendations for supplemental testing. Non-Reactive: Antibodies to HCV were not detected; does not exclude the possibility of exposure to HCV Reactive Results are presumptive evidence of antibodies to HCV. Follow CDC recommendations for supplemental testing. Order confirmation testing: HCV Quant by PCR testing - HCVPCR #[id number] Non Reactive: < 0.8 Equivocal: >/= 0.8 to < 1.0 Reactive: >/= 1.0 The CDC requires that a reactive/equivocal HCV antibody result be sent out for confirmation. HCV Quant by PCR testing. Performed By: #### L 3890.6301, L3100.5475, L500.4050, L4600.0100, L3890.6102, L101.9900, L501.6710, L505.7010, L3890.6202, L100.0100 #### [facility] [address] [place], [place], [id number] Hepatitis C antibodyOrdered By: Rhoda Tripathi on [...] HCV Quant by PCR testing - HCVPCR #[id number] Non Reactive: < 0.8 Equivocal: >/= 0.8 to < 1.0 Reactive: >/= 1.0The [facility] requires that a reactive/equivocal HCV antibody result be sent out for confirmation. HCV Quant by PCR testing. Immature granulocytes/100 WB C Auto (Bld)Ordered By: Rhoda Tripathi on 05-28-2024 Immature granulocytes/100 WBC (Bld) 0.500 % 0.0-0.9 [facility] Comment on above: IG% - Immature Granu locytes (promyelocytes, myelocytes and metamyelocytes) > 1% indicates that a LEFT SHIFT is Present. L3890.6102on 05-28-2024 HEP B Surf Ag Non-Reactive Normal Nonreactive [facility] Comment on above: Result Comment: Reac tive: Presumptive evidence of HBV. Repeatedly reactive samples must be confirmed using a neutralization test ([facility] HBsAg Confirmatory Test) Non-Reactive: HBsAg not detected; does not exclude the possibility of exposure to HBV Performed By: #### L 3890.6301, L3100.5475, L500.4050, L4600.0100, L3890.6102, L101.9900, L501.6710, L505.7010, L3890.6202, L100.0100 #### [facility] [address] [place], [place], [id number] Laboratory - Chemistry and C hemistry - challengeOrdered By: Rhoda Tripathi on 05-28-2024 AST [Catalytic activity/Vol] 33 U/L <38 [facility] Lymphocytes Auto (Unsp spec) [#/Vol]Ordered By: Rhoda Tripathi on 05-28-2024 Lymphocytes (Bld) [#/Vol] 2.05 10*3/uL 0.83-4.51 [facility] Lymphocytes/100 WBC Auto (Un sp spec)Ordered By: Rhoda Tripathi on 05-28-2024 Lymphocytes/100 WBC (Bld) 34.5 % 19-41 [facility] MCV (mean corpuscular volume ) determinationOrdered By: Rhoda Tripathi on 05-28-2024 MCV (RBC) [Entitic vol] 92.6 fL 80-94 [facility] Mean corpuscular hemoglobin (MCH) determinationOrdered By: Rhoda Tripathi on 05-28-2024 MCH (RBC) [Entitic mass] 30.5 pg 27.0-32.0 [facility] Mean corpuscular hemoglobin concentration (MCHC) determinationOrdered By: Rhoda Tripathi on 05-28-2024 MCHC (RBC) [Mass/Vol] 32.9 g/dL 32-36 [facility] Mean platelet volume determi nationOrdered By: Rhoda Tripathi on 05-28-2024 Platelet mean volume (Bld) [Entitic vol] 10.6 fL 6.2-12.0 [facility] Monocyte percentageOrdered B y: Rhoda Tripathi on 05-28-2024 Monocytes/100 WBC (Bld) 11.8 % High 0-10 [facility] Neutrophil percentageOrdered By: Rhoda Tripathi on 05-28-2024 Neutrophils/100 WBC (Bld) 49.4 % 47-70 [facility] Nucleated red blood cell per centageOrdered By: Rhoda Tripathi on 05-28-2024 Nucleated RBC/100 WBC (Bld) [Ratio] 0 % 0-5 [facility] Platelet countOrdered By: Jamison Tripathi on 05-28-2024 Platelets (Bld) [#/Vol] 256 10*3/uL 150-450 [facility] Potassium (Unsp spec) [Mass/ Vol]Ordered By: Rhoda Tripathi on 05-28-2024 Potassium [Moles/Vol] 4.4 mmol/L 3.3-5.1 [facility] RBC Auto (Bld) [#/Vol]Ordere d By: Rhoda Tripathi on 05-28-2024 RBC (Bld) [#/Vol] 4.46 10*6/uL Low 4.6-6.2 [facility] Rheumatoid Factoron 05-29-19 25 RHEUMATOID FAC 15.1 IU/mL High <15 [facility] Comment on above: Performed By: #### L 100.0100, L500.4050 #### [facility] Laboratory [facility] [address] [place], [place], [id number] Rheumatoid factor Ql (S)Orde red By: Rhoda Tripathi on 05-28-2024 Rheumatoid Factor 15.1 IU/mL High <15 [facility] Serum creatinine measurement (mass/volume)Ordered By: Rhoda Tripathi on 05-28-2024 Creatinine [Mass/Vol] 0.85 mg/dL 0.70-1.20 [facility] Serum globulin measurementOr dered By: Rhoda Tripathi on 05-28-2024 Globulin (S) [Mass/Vol] 2.5 g/dL 2.2-4.2 [facility] Serum glucose measurement (m ass/volume)Ordered By: Rhoda Tripathi on 05-28-2024 Glucose [Mass/Vol] 99 mg/dL 70-99 [facility] Serum or plasma alanine garcia otransferase (ALT) measurementOrdered By: Rhoda Tripathi on 05-28-2024 ALT [Catalytic activity/Vol] 35 U/L <47 [facility] Serum or plasma albumin jorge urement (mass/volume)Ordered By: Rhoda Tripathi on 05-28-2024 Albumin [Mass/Vol] 4.3 g/dL 3.4-4.8 [facility] Serum or plasma albumin/glob ulin mass ratioOrdered By: Rhoda Tripathi on 05-28-2024 Albumin/Globulin [Mass ratio] 1.7 {ratio} 0.9-2.4 [facility] Serum or plasma alkaline edgard sphatase measurementOrdered By: Rhoda Tripathi on 05-28-2024 ALP [Catalytic activity/Vol] 80 U/L 40-129 [facility] Serum or plasma calcium jorge urement (mass/volume)Ordered By: Rhoda Tripathi on 05-28-2024 Calcium [Mass/Vol] 9.2 mg/dL 7.6-11.0 [facility] Serum or plasma urea nitroge n measurement (mass/volume)Ordered By: Rhoda Tripathi on 05-28-2024 Urea nitrogen [Mass/Vol] 15 mg/dL 4-19 [facility] Sodium levelOrdered By: Patel Tripathi on 05-28-2024 Sodium [Moles/Vol] 138 mmol/L 133-145 [facility] Total proteinOrdered By: Randi Tripathi on 05-28-2024 Protein [Mass/Vol] 6.9 g/dL 5.9-8.4 [facility] White blood cell (WBC) count Ordered By: Rhoda Tripathi on 05-28-2024 WBC (Bld) [#/Vol] 6.0 10*3/uL 4.4-11.0 [facility] Absolute neutrophil countOrd ered By: Mian Starr on 04-24-2024 Neutrophils (Bld) [#/Vol] 2.8 10*3/uL 2.0-7.7 [facility] Anion gap in Serum or Plasma Ordered By: Mian Starr on 04-24-2024 Anion gap [Moles/Vol] 12 mmol/L 5-15 [facility] BUN/creatinine ratioOrdered By: Mian Starr on 04-24-2024 Urea nitrogen/Creatinine [Mass ratio] 15.4 mg/mg 10-20 [facility] Basophil percentageOrdered B y: Mian Starr on 04-24-2024 Basophils/100 WBC (Bld) 1.1 % High 0-1 [facility] Bilirubin, totalOrdered By: Mian Starr on 04-24-2024 Bilirubin [Mass/Vol] 0.75 mg/dL 0.00-1.[address] [facility] CBC W/Diff, Automatedon Absolute Lymph 1.86 X10 3/uL Normal 0.83-4.51 [facility] Comment on above: Order Comment: Order Date: 10/11/23 Order Info: [id number] - CBCD Performed By: #### L 100.0100, L500.4050 #### [facility] [address] [place], [address] Absolute Neut 2.8 X10 3/uL Normal 2.0-7.7 [facility] Comment on above: Order Comment: Order Date: 10/11/23 Order Info: [id number] - CBCD Performed By: #### L 100.0100, L500.4050 #### [facility] [address] [place], [address] Basophils/100 WBC (Bld) 1.1 % High 0-1 [facility] Comment on above: Order Comment: Order Date: 10/11/23 Order Info: [id number] - CBCD Performed By: #### L 100.0100, L500.4050 #### [facility] [address] [place], [address] Eosinophils/100 WBC (Bld) 2.2 % Normal 0-5 [facility] Comment on above: Order Comment: Order Date: 10/11/23 Order Info: [id number] - CBCD Performed By: #### L 100.0100, L500.4050 #### [facility] [address] [place], [address] Erythrocyte distribution width (RBC) [Ratio] 12.7 % Normal 11.6-14.6 [facility] Comment on above: Order Comment: Order Date: 10/11/23 Order Info: [id number] - CBCD Performed By: #### L 100.0100, L500.4050 #### [facility] [address] [place], [address] Hematocrit (Bld) [Volume fraction] 42.2 % Normal 40-54 [facility] Comment on above: Order Comment: Order Date: 10/11/23 Order Info: [id number]- - CBCD Performed By: #### L 100.0100, L500.4050 #### [facility] [address] [place], [address] Hemoglobin (Bld) [Mass/Vol] 14.6 g/dL Normal 13.0-16.5 [facility] Comment on above: Order Comment: Order Date: 10/11/23 Order Info: [id number]- - CBCD Performed By: #### L 100.0100, L500.4050 #### [facility] [address] [place], [address] IG% 0.400 Normal 0.0-0.9 [facility] Comment on above: Order Comment: Order Date: 10/11/23 Order Info: [id number] - CBCD Result Comment: IG% - Immature Granulocytes (promyelocytes, myelocytes and metamyelocytes) > 1% indicates that a LEFT SHIFT is Present. Performed By: #### L 100.0100, L500.4050 #### [facility] [address] [place], [address] Lymphocytes/100 WBC (Bld) 34.1 % Normal 19-41 [facility] Comment on above: Order Comment: Order Date: 10/11/23 Order Info: 018- - CBCD Performed By: #### L 100.0100, L500.4050 #### [facility] [address] [place], [address] MCH (RBC) [Entitic mass] 31.0 pg Normal 27.0-32.0 [facility] Comment on above: Order Comment: Order Date: 10/11/23 Order Info: 018- - CBCD Performed By: #### L 100.0100, L500.4050 #### [facility] [address] [place], [address] MCHC (RBC) [Mass/Vol] 34.6 g/dL Normal 32-36 [facility] Comment on above: Order Comment: Order Date: 10/11/23 Order Info: [id number] - CBCD Performed By: #### L 100.0100, L500.4050 #### [facility] [address] [place], [address] MCV (RBC) [Entitic vol] 89.6 fL Normal 80-94 [facility] Comment on above: Order Comment: Order Date: 10/11/23 Order Info: [id number] - CBCD Performed By: #### L 100.0100, L500.4050 #### [facility] [address] [place], [address] Monocytes/100 WBC (Bld) 11.7 % High 0-10 [facility] Comment on above: Order Comment: Order Date: 10/11/23 Order Info: [id number] - CBCD Performed By: #### L 100.0100, L500.4050 #### [facility] [address] [place], [address] Neutrophils/100 WBC (Bld) 50.5 % Normal 47-70 [facility] Comment on above: Order Comment: Order Date: 10/11/23 Order Info: [id number] - CBCD Performed By: #### L 100.0100, L500.4050 #### [facility] [address] [place], [address] Nucleated RBC (Bld) [#/Vol] 0 10*3/uL Normal 0-5 [facility] Comment on above: Order Comment: Order Date: 10/11/23 Order Info: [id number] - CBCD Performed By: #### L 100.0100, L500.4050 #### [facility] [address] [place], [address] Platelet mean volume (Bld) [Entitic vol] 10.1 fL Normal 6.2-12.0 [facility] Comment on above: Order Comment: Order Date: 10/11/23 Order Info: [id number] - CBCD Performed By: #### L 100.0100, L500.4050 #### [facility] [address] [place], [address] Platelets (Bld) [#/Vol] 295 10*3/uL Normal 150-450 [facility] Comment on above: Order Comment: Order Date: 10/11/23 Order Info: [id number] - CBCD Performed By: #### L 100.0100, L500.4050 #### [facility] [address] [place], [address] RBC (Bld) [#/Vol] 4.71 10*6/uL Normal 4.6-6.2 [facility] Comment on above: Order Comment: Order Date: 10/11/23 Order Info: [id number] - CBCD Performed By: #### L 100.0100, L500.4050 #### [facility] [address] [place], [address] RDW SD 42.3 fl Normal 35.1-43.9 [facility] Comment on above: Order Comment: Order Date: 10/11/23 Order Info: [id number] - CBCD Performed By: #### L 100.0100, L500.4050 #### [facility] [address] [place], [address] WBC (Bld) [#/Vol] 5.5 10*3/uL Normal 4.4-11.0 [facility] Comment on above: Order Comment: Order Date: 10/11/23 Order Info: [id number] - CBCD Performed By: #### L 100.0100, L500.4050 #### [facility] [address] [place], [address] Calculated very low density lipoprotein (VLDL) cholesterol measurementOrdered By: Mian Starr on 04-24-2024 VLDL Cholesterol 14 mg/dL 5-40 [facility] Carbon dioxide, total [Moles /volume] in Central venous bloodOrdered By: Mian Starr on 04-24-2024 CO2 [Moles/Vol] 20.9 mmol/L Low 21.0-32.0 [facility] Chloride assayOrdered By: Raven Starr on 04-24-2024 Chloride [Moles/Vol] 102 mmol/L 98-[address] [facility] Comprehensive Metabolic Prof ilon 04-24-2024 Albumin [Mass/Vol] 4.4 g/dL Normal 3.4-4.8 [facility] Comment on above: Order Comment: Order Date: 04/09/24 Order Info: [id number]- - CMP Order Info: [id number] - LIPID Order Info: 285- - PSA Performed By: #### L 100.0100, L500.4050 #### [facility] [address] [place], [address] Albumin/Globulin [Mass ratio] 1.5 {ratio} Normal 0.9-2.4 [facility] Comment on above: Order Comment: Order Date: 04/09/24 Order Info: [id number] - CMP Order Info: - LIPID Order Info: [id number] - PSA Performed By: #### L 100.0100, L500.4050 #### [facility] [address] [place], [address] ALK PHOS 58 U/L Normal 40-129 [facility] Comment on above: Order Comment: Order Date: 04/09/24 Order Info: [id number] - CMP Order Info: [id number] - LIPID Order Info: [id number] - PSA Performed By: #### L 100.0100, L500.4050 #### [facility] [address] [place], [address] ALT [Catalytic activity/Vol] 37 U/L Normal <=46 [facility] Comment on above: Order Comment: Order Date: 04/09/24 Order Info: 07-1 - CMP Order Info: [id number] - LIPID Order Info: [id number] - PSA Performed By: #### L 100.0100, L500.4050 #### [facility] [address] [place], [address] AST [Catalytic activity/Vol] 32 U/L Normal <=37 [facility] Comment on above: Order Comment: Order Date: 04/09/24 Order Info: [id number] - CMP Order Info: - LIPID Order Info: 7-1 - PSA Performed By: #### L 100.0100, L500.4050 #### [facility] [address] [place], [address] Bilirubin [Mass/Vol] 0.75 mg/dL Normal 0.00-1.[address] [facility] Comment on above: Order Comment: Order Date: 04/09/24 Order Info: [id number] - CMP Order Info: - LIPID Order Info: 285- - PSA Performed By: #### L 100.0100, L500.4050 #### [facility] [address] [place], [address] BUN/CRE 15.4 RATIO Normal 10-20 [facility] Comment on above: Order Comment: Order Date: 04/09/24 Order Info: [id number] - CMP Order Info: - LIPID Order Info: 285- - PSA Performed By: #### L 100.0100, L500.4050 #### [facility] [address] [place], [address] Calcium [Mass/Vol] 9.2 mg/dL Normal 7.6-11.0 [facility] Comment on above: Order Comment: Order Date: 04/09/24 Order Info: [id number] - CMP Order Info: [id number] - LIPID Order Info: [id number] - PSA Performed By: #### L 100.0100, L500.4050 #### [facility] [address] [place], [address] Chloride [Moles/Vol] 102 mmol/L Normal 98-[address] [facility] Comment on above: Order Comment: Order Date: 04/09/24 Order Info: [id number] - CMP Order Info: [id number] - LIPID Order Info: [id number] - PSA Performed By: #### L 100.0100, L500.4050 #### [facility] [address] [place], [address] CO2 [Moles/Vol] 20.9 mmol/L Low 21.0-32.0 [facility] Comment on above: Order Comment: Order Date: 04/09/24 Order Info: 785- - CMP Order Info: [id number] - LIPID Order Info: 285-1 - PSA Performed By: #### L 100.0100, L500.4050 #### [facility] [address] [place], [address] Creatinine [Mass/Vol] 0.84 mg/dL Normal 0.70-1.20 [facility] Comment on above: Order Comment: Order Date: 04/09/24 Order Info: 785- - CMP Order Info: [id number] - LIPID Order Info: [id number] - PSA Performed By: #### L 100.0100, L500.4050 #### [facility] [address] [place], [address] GAP 12 Normal 5-15 [facility] Comment on above: Order Comment: Order Date: 04/09/24 Order Info: [id number] - CMP Order Info: [id number] - LIPID Order Info: [id number] - PSA Performed By: #### L 100.0100, L500.4050 #### [facility] [address] [place], [address] GFR/1.73 sq M.predicted among non-blacks MDRD (S/P/Bld) [Vol rate/Area] 97 mL/min/{1.73_m2} Normal >60 [facility] Comment on above: Order Comment: Order Date: 04/09/24 Order Info: [id number]- - CMP Order Info: - LIPID Order Info: [id number] - PSA Result Comment: mL/m in/1.73m2 CKD-EPI Creatinine Equation (2020) Performed By: #### L 100.0100, L500.4050 #### [facility] [address] [place], [address] Globulin (S) [Mass/Vol] 2.9 g/dL Normal 2.2-4.2 [facility] Comment on above: Order Comment: Order Date: 04/09/24 Order Info: [id number]- - CMP Order Info: [id number] - LIPID Order Info: [id number] - PSA Performed By: #### L 100.0100, L500.4050 #### [facility] [address] [place], [address] Glucose [Mass/Vol] 99 mg/dL Normal 70-99 [facility] Comment on above: Order Comment: Order Date: 04/09/24 Order Info: [id number] - CMP Order Info: [id number] - LIPID Order Info: [id number] - PSA Performed By: #### L 100.0100, L500.4050 #### [facility] [address] [place], [address] Potassium [Moles/Vol] 4.3 mmol/L Normal 3.3-5.1 [facility] Comment on above: Order Comment: Order Date: 04/09/24 Order Info: [id number] - CMP Order Info: [id number] - LIPID Order Info: [id number] - PSA Performed By: #### L 100.0100, L500.4050 #### [facility] [address] [place], [address] Sodium [Moles/Vol] 135 mmol/L Normal 133-145 [facility] Comment on above: Order Comment: Order Date: 04/09/24 Order Info: [id number] - CMP Order Info: [id number] - LIPID Order Info: [id number] - PSA Performed By: #### L 100.0100, L500.4050 #### [facility] [address] [place], [address] T PROT 7.3 g/dL Normal 5.9-8.4 [facility] Comment on above: Order Comment: Order Date: 04/09/24 Order Info: [id number] - CMP Order Info: [id number] - LIPID Order Info: [id number] - PSA Performed By: #### L 100.0100, L500.4050 #### [facility] [address] [place], [address] Urea nitrogen [Mass/Vol] 13 mg/dL Normal 4-19 [facility] Comment on above: Order Comment: Order Date: 04/09/24 Order Info: [id number] - CMP Order Info: [id number] - LIPID Order Info: [id number] - PSA Performed By: #### L 100.0100, L500.4050 #### [facility] [address] [place], [address] Eosinophil percentageOrdered By: Mian Starr on 04-24-2024 Eosinophils/100 WBC (Bld) 2.2 % 0-5 [facility] Erythrocyte distribution wid th ratioOrdered By: Mian Starr on 04-24-2024 Erythrocyte distribution width (RBC) [Ratio] 12.7 % 11.6-14.6 [facility] Erythrocyte distribution wid th standard deviationOrdered By: Mian Starr on 04-24-2024 Erythrocyte distribution width (RBC) [Entitic vol] 42.3 fL 35.1-43.9 [facility] GFR/1.73 sq M.predicted arden g non-blacks MDRD (S/P/Bld) [Vol rate/Area]Ordered By: Mian Starr on 04-24-2024 Estimated GFR (MDRD) Non-Af Amer 97 >60 [facility] Comment on above: mL/min/1.73m2 CKD-EP I Creatinine Equation (2020) Hematocrit Auto (Bld) [Volum e fraction]Ordered By: Mian Starr on 04-24-2024 Hematocrit (Bld) [Volume fraction] 42.2 % 40-54 [facility] Hemoglobin measurementOrdere d By: Mian Starr on 04-24-2024 Hemoglobin (Bld) [Mass/Vol] 14.6 g/dL 13.0-16.5 [facility] Immature granulocytes/100 WB C Auto (Bld)Ordered By: Mian Starr on 04-24-2024 Immature granulocytes/100 WBC (Bld) 0.400 % 0.0-0.9 [facility] Comment on above: IG% - Immature Granu locytes (promyelocytes, myelocytes and metamyelocytes) > 1% indicates that a LEFT SHIFT is Present. LDL calc ser/plasOrdered By: Mian Starr on 04-24-2024 LDL Cholesterol, Calculated 118 mg/dL [facility] Comment on above: Zwkrfahvnz=252-870 m g/dL & Higher Vtdm=756 mg/dL or greater Laboratory - Chemistry and C hemistry - challengeOrdered By: Mian Starr on 04-24-2024 AST [Catalytic activity/Vol] 32 U/L <38 [facility] Lipid Profileon 04-24-2024 CHOL:HDL 4.16 Normal [facility] Comment on above: Order Comment: Order Date: 04/09/24 Order Info: [id number] - CMP Order Info: [id number] - LIPID Order Info: [id number] - PSA Performed By: #### L 501.9910, L500.4100 #### [facility] [address] [place], [place], [address] Cholesterol [Mass/Vol] 174 mg/dL Normal <=200 [facility] Comment on above: Order Comment: Order Date: 04/09/24 Order Info: [id number] - CMP Order Info: [id number] - LIPID Order Info: [id number] - PSA Result Comment: Chol esterol level, Desirable <200 mg/dL Borderline high cholesterol 200-239 mg/dL High cholesterol >=240 mg/dL Recommendations of the NCEP Adult Treatment Panel for the following risk-cutoff thresholds for the [place] population. Performed By: #### L 501.9910, L500.4100 #### [facility] [address] [place], [address] Cholesterol in HDL [Mass/Vol] 42 mg/dL Normal [facility] Comment on above: Order Comment: Order Date: 04/09/24 Order Info: [id number] - CMP Order Info: [id number] - LIPID Order Info: [id number] - PSA Result Comment: [place] on[place] Cholesterol Education Program (NCEP) guidelines: <40 mg/dL: Low HDL-cholesterol (major risk factor for CHD) >= 60 mg/dL: High HDL-cholesterol (negative risk factor for CHD) HDL-cholesterol is affected by a number of factors, e.g. smoking, exercise, hormones, sex and age. Performed By: #### L 501.9910, L500.4100 #### [facility] [address] [place], [address] Cholesterol in LDL [Mass/Vol] 118 mg/dL Normal [facility] Comment on above: Order Comment: Order Date: 04/09/24 Order Info: [id number] - CMP Order Info: [id number] - LIPID Order Info: [id number] - PSA Result Comment: Bord efajnu=250-103 mg/dL Higher Xijw=008 mg/dL or greater Performed By: #### L 501.9910, L500.4100 #### [facility] [address] [place], [address] Cholesterol in VLDL [Mass/Vol] 14 mg/dL Normal 5-40 [facility] Comment on above: Order Comment: Order Date: 04/09/24 Order Info: [id number] - CMP Order Info: [id number] - LIPID Order Info: [id number] - PSA Performed By: #### L 501.9910, L500.4100 #### [facility] [address] [place], [address] Triglyceride [Mass/Vol] 70 mg/dL Normal [facility] Comment on above: Order Comment: Order Date: 04/09/24 Order Info: [id number] - CMP Order Info: [id number] - LIPID Order Info: [id number] - PSA Result Comment: The drugs N-Acetylcysteine and Metamizole may falsely depress this assay. Normal range: <150 mg/dL Borderline High: 150-199 mg/dL High: 200-499 mg/dL Very High: >500 mg/dL Performed By: #### L 501.9910, L500.4100 #### [facility] [address] [place], [address] Lymphocytes Auto (Unsp spec) [#/Vol]Ordered By: Mian Starr on 04-24-2024 Lymphocytes (Bld) [#/Vol] 1.86 10*3/uL 0.83-4.51 [facility] Lymphocytes/100 WBC Auto (Un sp spec)Ordered By: Mian Starr on 04-24-2024 Lymphocytes/100 WBC (Bld) 34.1 % 19-41 [facility] MCV (mean corpuscular volume ) determinationOrdered By: Mian Starr on 04-24-2024 MCV (RBC) [Entitic vol] 89.6 fL 80-94 [facility] Mean corpuscular hemoglobin (MCH) determinationOrdered By: Mian Starr on 04-24-2024 MCH (RBC) [Entitic mass] 31.0 pg 27.0-32.0 [facility] Mean corpuscular hemoglobin concentration (MCHC) determinationOrdered By: Mian Starr on 04-24-2024 MCHC (RBC) [Mass/Vol] 34.6 g/dL 32-36 [facility] Mean platelet volume determi nationOrdered By: Mian Starr on 04-24-2024 Platelet mean volume (Bld) [Entitic vol] 10.1 fL 6.2-12.0 [facility] Monocyte percentageOrdered B y: Mian Starr on 04-24-2024 Monocytes/100 WBC (Bld) 11.7 % High 0-10 [facility] Neutrophil percentageOrdered By: Mian Starr on 04-24-2024 Neutrophils/100 WBC (Bld) 50.5 % 47-70 [facility] Nucleated red blood cell per centageOrdered By: Mian Starr on 04-24-2024 Nucleated RBC/100 WBC (Bld) [Ratio] 0 % 0-5 [facility] PSA, total screeningOrdered By: Mian Starr on 04-24-2024 Prostate Specific Antigen Screen 1.58 ng/mL 0.02-4.00 [facility] Comment on above: This test was perfor [...] 04-24-2024 PSA,TOT SCREEN 1.58 ng/mL Normal 0.02-4.00 [facility] Comment on above: Order Comment: Order Date: 04/09/24 Order Info: [id number] - CMP Order Info: [id number] - LIPID Order Info: [id number] - PSA [...] Performed By: #### L 501.9910, L500.4100 #### [facility] [address] [place] [address]. [place], [address] Platelet countOrdered By: Raven Starr on 04-24-2024 Platelets (Bld) [#/Vol] 295 10*3/uL 150-450 [facility] Potassium (Unsp spec) [Mass/ Vol]Ordered By: Mian Starr on 04-24-2024 Potassium [Moles/Vol] 4.3 mmol/L 3.3-5.1 [facility] RBC Auto (Bld) [#/Vol]Ordere d By: Mian Starr on 04-24-2024 RBC (Bld) [#/Vol] 4.71 10*6/uL 4.6-6.2 [facility] Screening total cholesterol/ high density lipoprotein (HDL) cholesterol ratioOrdered By: Mian Starr on 04-24-2024 Cholesterol.total/Choles terol in HDL [Mass ratio] 4.16 {ratio} [facility] Serum creatinine measurement (mass/volume)Ordered By: Mian Starr on 04-24-2024 Creatinine [Mass/Vol] 0.84 mg/dL 0.70-1.20 [facility] Serum globulin measurementOr dered By: Mian Starr on 04-24-2024 Globulin (S) [Mass/Vol] 2.9 g/dL 2.2-4.2 [facility] Serum glucose measurement (m ass/volume)Ordered By: Mian Starr on 04-24-2024 Glucose [Mass/Vol] 99 mg/dL 70-99 [facility] Serum or plasma alanine garcia otransferase (ALT) measurementOrdered By: Mian Starr on 04-24-2024 ALT [Catalytic activity/Vol] 37 U/L <47 [facility] Serum or plasma albumin jorge urement (mass/volume)Ordered By: Mian Starr on 04-24-2024 Albumin [Mass/Vol] 4.4 g/dL 3.4-4.8 [facility] Serum or plasma albumin/glob ulin mass ratioOrdered By: Mian Starr on 04-24-2024 Albumin/Globulin [Mass ratio] 1.5 {ratio} 0.9-2.4 [facility] Serum or plasma alkaline edgard sphatase measurementOrdered By: Mian Starr on 04-24-2024 ALP [Catalytic activity/Vol] 58 U/L 40-129 [facility] Serum or plasma calcium jorge urement (mass/volume)Ordered By: Mian Starr on 04-24-2024 Calcium [Mass/Vol] 9.2 mg/dL 7.6-11.0 [facility] Serum or plasma cholesterol in HDL measurement (mass/volume)Ordered By: Mian Starr on 04-24-2024 Cholesterol in HDL [Mass/Vol] 42 mg/dL >40 [facility] Comment on above: National Cholesterol Education Program (NCEP) guidelines:<40 mg/dL: Low HDL-cholesterol (major risk factor for CHD)>= 60 mg/dL: High HDL-cholesterol (negative risk factor for CHD)HDL-cholesterol is affected by a number of factors, e.g. smoking, exercise, hormones, sex and age. Serum or plasma cholesterol measurement (mass/volume)Ordered By: Mian Starr on 04-24-2024 Cholesterol [Mass/Vol] 174 mg/dL <201 [facility] Comment on above: Cholesterol level, D esirable <200 mg/dLBorderline high cholesterol 200-239 mg/dLHigh cholesterol >=240 mg/dLRecommendations of the NCEP Adult Treatment Panel for the following risk-cutoff thresholds for the [place] population. Serum or plasma urea nitroge n measurement (mass/volume)Ordered By: Mian Starr on 04-24-2024 Urea nitrogen [Mass/Vol] 13 mg/dL - [facility] Sodium levelOrdered By: Erick Starr on 04-24-2024 Sodium [Moles/Vol] 135 mmol/L 133-145 [facility] Total proteinOrdered By: Fatimah Starr on 04-24-2024 Protein [Mass/Vol] 7.3 g/dL 5.9-8.4 [facility] Triglycerides measurementOrd ered By: Mian Starr on 04-24-2024 Triglyceride [Mass/Vol] 70 mg/dL <199 [facility] Comment on above: The drugs N-Acetylcy steine and Metamizole may falsely depress this assay. Normal range: <150 mg/dLBorderline High: 150-199 mg/dLHigh: 200-499 mg/dLVery High: >500 mg/dL White blood cell (WBC) count Ordered By: Mian Starr on 04-24-2024 WBC (Bld) [#/Vol] 5.5 10*3/uL 4.4-11.0 [facility] Basophil percentageOrdered B y: Mian Starr on 05-10-2023 Bilirubin [Mass/Vol] 0.40 mg/dL 0.20-1.[address] [facility] Comment on above: For patients on eltr ombopag therapy, use of Dimension [place] TBIL is not recommended. Chloride [Moles/Vol] 103 mmol/L 98-[address] [facility] Glucose [Mass/Vol] 102 mg/dL 74-106 [facility] Comment on above: Fasting Glucose resu lt from 100 to 125 mg/dL suggests IMPAIRED HOMEOSTASIS per A.D.A. criteria. Potassium [Moles/Vol] 4.3 mmol/L 3.5-5.1 [facility] Protein [Mass/Vol] 7.1 g/dL 6.4-8.2 [facility] Sodium [Moles/Vol] 140 mmol/L 136-145 [facility] Laboratory - Chemistry and C hemistry - challengeOrdered By: Mian Starr on 05-10-2023 Albumin/Globulin [Mass ratio] 1.1 {ratio} 0.9-2.4 [facility] ALP [Catalytic activity/Vol] 73 U/L 45-117 [facility] ALT [Catalytic activity/Vol] 35 U/L 16-61 [facility] CO2 [Moles/Vol] 28.0 mmol/L 21.0-32.0 [facility] Globulin (S) [Mass/Vol] 3.4 g/dL 2.2-4.2 [facility] Urea nitrogen/Creatinine [Mass ratio] 14.6 mg/mg 10-20 [facility] No Panel InformationOrdered By: Mian Starr on 05-10-2023 Estimated GFR (MDRD) Amer 122 mL/min >60 [facility] Comment on above: GFR Calc Estimated GFR (MDRD) Non-Af Amer 101 mL/min >60 [facility] Comment on above: Non- GFR Calc Vitamin D 25-Hydroxy 37.7 ng/mL [facility] Comment on above: Vitamin D 25(OH) Sta tus Range Deficiency <20 ng/mL (50nmol/L) Insufficiency 20 - 30 ng/mL (50 - 75 nmol/L) Sufficiency 30 - 100 ng/mL (75 - 250 nmol/L) Toxicity >100 ng/mL (>250 nmol/L) Serum or plasma calcium jorge urement (mass/volume)Ordered By: Mian Starr on 05-10-2023 Calcium [Mass/Vol] 9.0 mg/dL 8.5-10.1 [facility] Serum or plasma creatinine m easurement (mass/volume)Ordered By: Mian Starr on 05-10-2023 Creatinine [Mass/Vol] 0.82 mg/dL 0.70-1.30 [facility] Comment on above: The validity of the calculated GFR & GFRAA in patients over 70 years has not been determined. Clinical correlation is essential. Serum or plasma urea nitroge n measurement (mass/volume)Ordered By: Mian Matty on 05-10-2023 Urea nitrogen [Mass/Vol] 12 mg/dL 7-18 [facility] Thin prep Papanicolaou smear with manual screeningOrdered By: [facility] 05-10-2023 Thin prep Papanicolaou smear with manual screening 3.7 g/dL 3.2-5.0 [facility] Thin prep Papanicolaou smear with manual screening 29 U/L 15-37 [facility] Thin prep Papanicolaou smear with manual screening 9 5-15 [facility] Absolute lymphocyte countOrd ered By: [facility] on 10-08-2022 Lymphocytes Auto (Unsp spec) [#/Vol] 1.57 10*3/uL 0.83-4.51 [facility] Basophil percentageOrdered B y: Mian Matty on 10-08-2022 Basophils/100 WBC (Bld) 1.2 % 0-1 [facility] Bilirubin [Mass/Vol] 0.60 mg/dL 0.20-1.[address] [facility] Comment on above: For patients on eltr ombopag therapy, use of Dimension [place] TBIL is not recommended. Chloride [Moles/Vol] 100 mmol/L 98-[address] [facility] Cholesterol [Mass/Vol] 191 mg/dL <200 [facility] Comment on above: <200 mg/dL Desirable 200-240 mg/dL Borderline >240 mg/dL High Risk Eosinophils/100 WBC (Bld) 2.7 % 0-5 [facility] Glucose [Mass/Vol] 90 mg/dL 74-106 [facility] Neutrophils (Bld) [#/Vol] 2.4 10*3/uL 2.0-7.7 [facility] Neutrophils/100 WBC (Bld) 50.2 % 47-70 [facility] Potassium [Moles/Vol] 4.2 mmol/L 3.5-5.1 [facility] Protein [Mass/Vol] 7.2 g/dL 6.4-8.2 [facility] Sodium [Moles/Vol] 134 mmol/L 136-145 [facility] Triglyceride [Mass/Vol] 38 mg/dL <199 [facility] Comment on above: The drugs N-Acetylcy steine and Metamizole may falsely depress this assay.Serum Triglycerides Reference Interval Normal <150 mg/dL Borderline high 150 - 199 mg/dL High 200 - 499 mg/dL Very High > or = 500 mg/dL WBC (Bld) [#/Vol] 4.9 10*3/uL 4.4-11.0 [facility] Blood erythrocytes count (nu mber/volume)Ordered By: Mian Starr on 10-08-2022 RBC (Bld) [#/Vol] 4.42 10*6/uL 4.6-6.2 [facility] Blood hemoglobin measurement (mass/volume)Ordered By: Mian Starr on 10-08-2022 Hemoglobin (Bld) [Mass/Vol] 14.0 g/dL 13.0-16.5 [facility] Blood lymphocytes/100 leukoc ytesOrdered By: Mian Starr on 10-08-2022 Lymphocytes/100 WBC (Bld) 32.2 % 19-41 [facility] Blood monocytes/100 leukocyt esOrdered By: Mian Starr on 10-08-2022 Monocytes/100 WBC (Bld) 13.3 % 0-10 [facility] Blood platelet mean volumeOr dered By: Mian Starr on 10-08-2022 Platelet mean volume (Bld) [Entitic vol] 10.1 fL 6.2-12.0 [facility] Determination of erythrocyte mean corpuscular volume (MCV)Ordered By: Mian Starr on 10-08-2022 MCV (RBC) [Entitic vol] 92.1 fL 80-94 [facility] Hematocrit Auto (Bld) [Volum e fraction]Ordered By: Mian Starr on 10-08-2022 Hematocrit (Bld) [Volume fraction] 40.7 % 40-54 [facility] Laboratory - Chemistry and C hemistry - challengeOrdered By: Mian Starr on 10-08-2022 ALP [Catalytic activity/Vol] 83 U/L 45-117 [facility] ALT [Catalytic activity/Vol] 36 U/L 16-61 [facility] CO2 [Moles/Vol] 29.0 mmol/L 21.0-32.0 [facility] Globulin (S) [Mass/Vol] 3.3 g/dL 2.2-4.2 [facility] Urea nitrogen/Creatinine [Mass ratio] 15.2 mg/mg 10-20 [facility] Laboratory - Hematology and Cell countsOrdered By: Mian Starr on 10-08-2022 Erythrocyte distribution width (RBC) [Entitic vol] 42.7 fL 35.1-43.9 [facility] Erythrocyte distribution width (RBC) [Ratio] 12.6 % 11.6-14.6 [facility] Immature granulocytes/100 WBC (Bld) 0.400 % 0.0-0.9 [facility] Comment on above: IG% - Immature Granu locytes (promyelocytes, myelocytes and metamyelocytes) > 1% indicates that a LEFT SHIFT is Present. MCH (RBC) [Entitic mass] 31.7 pg 27.0-32.0 [facility] Nucleated RBC/100 WBC (Bld) [Ratio] 0 % 0-5 [facility] MCHC Auto (RBC) [Mass/Vol]Or dered By: Mian Starr on 10-08-2022 MCHC (RBC) [Mass/Vol] 34.4 g/dL 32-36 [facility] No Panel InformationOrdered By: Mian Starr on 10-08-2022 Estimated GFR (MDRD) Amer 116 mL/min >60 [facility] Comment on above: GFR Calc Estimated GFR (MDRD) Non-Af Amer 96 mL/min >60 [facility] Comment on above: Non- GFR Calc Prostate Specific Antigen Screen 2.70 ng/mL 0.00-4.00 [facility] Comment on above: This test was perfor med using the TPSA assay method for the[employer] chemistry system. Values obtained with differentassay methods cannot be used interchangably.When changing PSA assays in the course of monitoring apatient, additional sequential testing should be carriedout to confirm baseline values. Platelets bldOrdered By: Fatimah Starr on 10-08-2022 Platelets (Bld) [#/Vol] 253 10*3/uL 150-450 [facility] Serum or plasma albumin jorge urement (mass/volume)Ordered By: Mian Starr on 10-08-2022 Albumin [Mass/Vol] 3.9 g/dL 3.2-5.0 [facility] Serum or plasma albumin/glob ulin mass ratioOrdered By: Mian Starr on 10-08-2022 Albumin/Globulin [Mass ratio] 1.2 {ratio} 0.9-2.4 [facility] Serum or plasma calcium jorge urement (mass/volume)Ordered By: Mian Starr on 10-08-2022 Calcium [Mass/Vol] 8.9 mg/dL 8.5-10.1 [facility] Serum or plasma cholesterol in HDL measurement (mass/volume)Ordered By: Mian Starr on 10-08-2022 Cholesterol in HDL [Mass/Vol] 50 mg/dL >40 [facility] Comment on above: The drugs N-Acetylcy steine and Metamizole may falsely depress this assay. Reference Range HDL <40 mg/dL Low HDL Cholesterol HDL >or= 60 mg/dL High HDL Cholesterol Serum or plasma cholesterol in VLDL measurement (mass/volume)Ordered By: Mian Starr on 10-08-2022 Cholesterol in VLDL [Mass/Vol] 8 mg/dL 5-40 [facility] Serum or plasma creatinine m easurement (mass/volume)Ordered By: Mian Starr on 10-08-2022 Creatinine [Mass/Vol] 0.86 mg/dL 0.70-1.30 [facility] Comment on above: The validity of the calculated GFR & GFRAA in patients over 70 years has not been determined. Clinical correlation is essential. Serum or plasma low density lipoprotein (LDL) cholesterol measurement (mass/volume)Ordered By: Mian Starr on 10-08-2022 Cholesterol in LDL [Mass/Vol] 133 mg/dL 0-130 [facility] Serum or plasma urea nitroge n measurement (mass/volume)Ordered By: Mian Starr on 10-08-2022 Urea nitrogen [Mass/Vol] 13 mg/dL 7-18 [facility] Serum rheumatoid factor dete ctionOrdered By: Mian Starr on 10-08-2022 Rheumatoid factor Ql (S) < 10.0 IU/mL <15 [facility] Thin prep Papanicolaou smear with manual screeningOrdered By: Mian Starr on 10-08-2022 Thin prep Papanicolaou smear with manual screening 26 U/L 15-37 [facility] Thin prep Papanicolaou smear with manual screening 5 5-15 [facility] Encounters Encounter Date Encounter Type Care Provider Facility Start: 05-28-2024 End: 05-28-2024 ambulatory Mian Starr MD Work Phone: [facility] Work Phone: Start: 05-28-2024 End: 05-28-[address] [facility] Start: 05-28-2024 End: 05-28-2024 ambulatory Mian Starr Facility:[facility] Start: 04-24-2024 End: 04-24-2024 ambulatory Mian Starr MD Work Phone: [facility] Work Phone: Start: 04-24-2024 End: 04-24-[address] [facility] Start: 04-24-2024 End: 04-24-2024 ambulatory Mian Starr Facility:[facility] Start: 05-10-2023 End: 05-10-2023 ambulatory MD Mian Starr Work Phone: [facility] Work Phone: Start: 05-10-2023 End: 05-10-2023 Patient encounter procedure [facility] Start: 04-13-2023 End: 04-13-2023 ambulatory MD Mian Starr Work Phone: [facility] Work Phone: Start: 04-13-2023 End: 04-13-2023 Patient encounter procedure MD Mian Starr Work Phone: [facility]-Outpatient Bone Densitometry Work Phone: Start: 03-11-2023 Non-patient / Non-visit MD Mian Starr Work Phone: [facility] Start: 03-11-2023 End: 03-11-2023 ambulatory MD Mian Starr Work Phone: [facility] Work Phone: Start: 03-11-2023 End: 03-11-2023 Patient encounter procedure MD Mian Starr Work Phone: [facility]-Cardiovascular Services Work Phone: Start: 10-20-2022 Non-patient / Non-visit MD Mian Starr Work Phone: [facility] Start: 10-20-2022 End: 10-20-2022 ambulatory MD Mian Starr Work Phone: [facility] Work Phone: Start: 10-20-2022 End: 10-20-2022 Patient encounter procedure MD Mian Starr Work Phone: [facility]-Pulmonary Services/Neurology Work Phone: Start: 10-08-2022 End: 10-08-2022 ambulatory [facility] Work Phone: Start: 10-08-2022 End: 10-08-2022 Patient encounter procedure [facility] Work Phone: Start: 05-09-2019 End: 05-09-2019 Patient encounter procedure JERRY GU[facility] Procedures Date Procedure Procedure Detail Performing Clinician Start: 04-13-2023 Dual energy X-ray absorptiometry MD Mian Starr Work Phone: Start: 10-08-2022 Plain x-ray of hand Payers Date Payer Category Payer Private Health Insurance [id number] 2024 Self-pay [id number] 1960 Unknown [id number] Unknown [id number] Unknown [id number] Unknown [id number] Social History Date Type Detail Facility Tobacco smoking stat [facility] Unknown if ever smoked [facility] Work Phone: Start: 1960 Sex Assigned At Male [facility] Tobacco smoking stat [facility] Unknown if ever smoked [facility] Work Phone: Start: 05-04-2024 End: 06-01-2024 Sex Male (finding) [facility] Procedure note 10-20-2022 Note Date & Type Note Facility 10-20-2022 Procedure note [facility] Evaluation note Note Date & Type Note Facility Evaluation note No assessment information availa ble [facility] Work Phone: Reason for referral (narrative) Note Date & Type Note Facility Reason for referral (narrative) No reason for referral information available [facility] Work Phone: Summary Purpose Family History No [...] section and content) DATE CREATED AUTHOR 05/09/2019 [facility] DATE CREATED AUTHOR AUTHOR'S MAYRA ATION 06/03/2024 [facility] Care Teams (unrecognized sec tion and content) [...] BE BASED ON THE PRIMARY CLINICAL RECORDS. [facility] [employer] [facility]. provides no warranty or guarantee of the accuracy or completeness of information in this document.
[2024-08-21 11:04] LABS: AST(SGOT) 32 U/L (<=37); Alanine Aminotransfer ALT/SGPT 38 U/L (<=46); Albumin, Serum 4.1 g/dL (3.4-4.8); Alkaline Phosphatase 55 U/L (40-129); Anion Gap 9 (5-15); BUN 11 mg/dL (4-19); BUN/Creat Ratio 12.2 RATIO (10-20); Calcium,Total 9.0 mg/dL (7.6-11.0); Carbon Dioxide 24.8 mmol/L (21.0-32.0); Chloride 101 mmol/L (98-108); Globulin 2.5 g/dL (2.2-4.2); Glucose 97 mg/dL (70-99); Potassium 4.2 mmol/L (3.3-5.1)
[2024-08-21 11:16] LABS: Hematocrit 38.3 % (40-54); Hemoglobin 13.0 g/dL (13.0-16.5); Immature Granulocytes Count 0.010 X10^3/uL (0.0-0.0); Mean Corp Hgb Conc 33.9 g/dL (32-36); Mean Corpuscular Volume 90.8 fL (80-94); Mean Platelet Vol. 10.4 fl (6.2-12.0); NRBC Flagged by Analyzer 0 % (0-5); Platelet Count 236 K/mm3 (150-450); RBC Distribution Width CV 13.2 % (11.6-14.6); RBC Distribution Width SD 43.4 fl (35.1-43.9); Red Blood Count 4.22 M/mm3 (4.6-6.2); White Blood Count 4.9 K/mm3 (4.4-11.0)
== END | disposition home or self-care (01) ==
LOC: MTLAB 07:22
PROVIDERS: PCP Family Medicine; Referring Provider Internal Medicine Rheumatology; Visit Provider Internal Medicine Rheumatology
DX: M06.4 Inflammatory polyarthropathy (principal); Z79.899 Other long term (current) drug therapy; M19.041 Primary osteoarthritis, right hand
CPT/HCPCS: 36415; 80053; 85025

== ENCOUNTER → 2024-11-12 | Outpatient (CLI) | payer OTHER, SELFPAY ==
[2024-11-12 18:08] LABS: Hematocrit 37.8 % (40-54); Hemoglobin 12.8 g/dL (13.0-16.5); Immature Granulocytes Count 0.020 X10^3/uL (0.0-0.0); Mean Corp Hgb Conc 33.9 g/dL (32-36); Mean Corpuscular Volume 89.6 fL (80-94); Mean Platelet Vol. 10.0 fl (6.2-12.0); NRBC Flagged by Analyzer 0 % (0-5); Platelet Count 244 K/mm3 (150-450); RBC Distribution Width CV 13.7 % (11.6-14.6); RBC Distribution Width SD 44.9 fl (35.1-43.9); Red Blood Count 4.22 M/mm3 (4.6-6.2); White Blood Count 5.3 K/mm3 (4.4-11.0)
[2024-11-12 18:49] LABS: AST(SGOT) 34 U/L (<=37); Alanine Aminotransfer ALT/SGPT 30 U/L (<=46); Albumin, Serum 4.2 g/dL (3.4-4.8); Alkaline Phosphatase 63 U/L (40-129); Anion Gap 10 (5-15); BUN 8 mg/dL (4-19); BUN/Creat Ratio 10.7 RATIO (10-20); Calcium,Total 8.9 mg/dL (7.6-11.0); Carbon Dioxide 23.9 mmol/L (21.0-32.0); Chloride 101 mmol/L (98-108); Globulin 2.5 g/dL (2.2-4.2); Glucose 89 mg/dL (70-99); Potassium 4.2 mmol/L (3.3-5.1)
== END | disposition home or self-care (01) ==
LOC: MTLAB 14:53
PROVIDERS: PCP Family Medicine; Referring Provider Internal Medicine Rheumatology; Visit Provider Internal Medicine Rheumatology
DX: M06.4 Inflammatory polyarthropathy (principal); Z79.899 Other long term (current) drug therapy; M19.041 Primary osteoarthritis, right hand
CPT/HCPCS: 36415; 80053; 85025

== ENCOUNTER → 2025-01-30 | Outpatient (CLI) | payer MEDICARE, BC, SELFPAY ==
[2025-01-30 09:04] LABS: Hematocrit 40.7 % (40-54); Hemoglobin 13.9 g/dL (13.0-16.5); Immature Granulocytes Count 0.010 X10^3/uL (0.0-0.0); Mean Corp Hgb Conc 34.2 g/dL (32-36); Mean Corpuscular Volume 88.7 fL (80-94); Mean Platelet Vol. 8.5 fl (6.2-12.0); NRBC Flagged by Analyzer 0 % (0-5); Platelet Count 249 K/mm3 (150-450); RBC Distribution Width CV 12.7 % (11.6-14.6); RBC Distribution Width SD 41.5 fl (35.1-43.9); Red Blood Count 4.59 M/mm3 (4.6-6.2); White Blood Count 4.7 K/mm3 (4.4-11.0)
[2025-01-30 09:38] LABS: AST(SGOT) 33 U/L (<=37); Alanine Aminotransfer ALT/SGPT 35 U/L (<=46); Albumin, Serum 4.4 g/dL (3.4-4.8); Alkaline Phosphatase 65 U/L (40-129); Anion Gap 9 (5-15); BUN 13 mg/dL (4-19); BUN/Creat Ratio 14.9 RATIO (10-20); Calcium,Total 9.4 mg/dL (7.6-11.0); Carbon Dioxide 26.3 mmol/L (21.0-32.0); Chloride 95 mmol/L (98-108); Globulin 2.9 g/dL (2.2-4.2); Glucose 125 mg/dL (70-99); Potassium 4.5 mmol/L (3.3-5.1)
== END | disposition home or self-care (01) ==
LOC: LAB 08:43
PROVIDERS: PCP Family Medicine; Referring Provider Internal Medicine Rheumatology; Visit Provider Internal Medicine Rheumatology
DX: M06.4 Inflammatory polyarthropathy (principal); Z79.899 Other long term (current) drug therapy; M19.041 Primary osteoarthritis, right hand; K90.0 Celiac disease
CPT/HCPCS: 36415; 80053; 85025